=== PATIENT | female | born 1985 | race Caucasian/White ===

== ENCOUNTER 2018-01-26 05:04 | Inpatient (IN) | payer BC, SELFPAY ==
[2018-01-26] MEDS: Lactated Ringers 1,000 ML 50 ML IV (05:15)
[2018-01-26] MEDS: Betamethasone/Betamethasone 30 MG/5 ML Vial 12 MG IM (05:27)
[2018-01-26 05:32] VITALS: BMI 23.6
[2018-01-26 05:32] LABS: Hematocrit 37.9 % (37-47); Hemoglobin 13.2 g/dl (12.0-15.0); Mean Corp Hgb Conc 34.8 g/gl (32-36); Mean Corpuscular Hgb 30.6 pg (27.0-32.0); Mean Corpuscular Volume 87.7 fL (81-99); Mean Platelet Vol. 9.5 fl (6.2-12.0); Platelet Count 389 K/mm3 (150-450); RBC Distribution Width CV 11.8 % (11.6-14.6); RBC Distribution Width SD 37.3 fl (35.1-43.9); Red Blood Count 4.32 M/mm3 (4.2-5.4); White Blood Count 23.2 K/mm3 (4.4-11.0)
[2018-01-26 05:33] LABS: Scan Indicated on CBC? Y/N NO
--- NOTE | 2018-01-26 06:16 | PCM.HP.OB ---
History Date of Admission: 01/26/18 Final KANWAL: 03/04/18 Final KANWAL Source: US <20 weeks Gestational age: 34 Weeks and 5 Days History of this : 32-year-old 5 para 0222 at 34-5/7 weeks can presents complaining contractions since approximately 4 AM. No gross vaginal bleeding or leaking of fluid. has been uncomplicated to date. She has a history of 2 previous 36 week deliveries and declined progesterone therapy during her . She has a history of petit mall seizures she has not been any medications for this during the .. Allergies acetaminophen [From Vicodin] Allergy (Verified 01/26/18 05:24) Unknown hydrocodone bitartrate [From Vicodin] Allergy (Verified 01/26/18 05:24) Unknown latex Allergy (Verified 01/26/18 05:24) Hives Home Medications: Home Medications Folic Acid 1 mg PO DAILY@0800 01/26/18 Vit Calc,Iron,Folic [ Vitamins] 1 each PO DAILY 01/26/18 Smoking Status: Former smoker Alcohol: None Number of Fetus(es): 1 History Past Pregnancies: Past Pregnancies Delivery Date Name GA/Weeks Outcome Route Weight Gender Labor Length Anesthesia Delivery Location Provider FOB Expected Delivery Method: Spontaneous Vaginal Review of Systems Constitutional: Denies: Anorexia, Chills, Fever Cardiovascular: Denies: Chest Pain Respiratory: Denies: Cough Physical Exam General: Alert, Cooperative, No apparent distress Cardiovascular: Regular rate Lungs: Normal air movement Abdomen: Soft, Non-Distended, Appropriate for Gestational Age Extremities:: No edema [employer]ING [employer]GER: Normal external genitalia Estimated gestational size: Appropriate for gestational size Presentation: Cephalic Cervix Dilation (cm): 8 - arom w/ moderate clear fluid Station: 1 Effacement (%): 80 Assessment/Plan 32-year-old 5 para 2021 at 34-5/7 weeks with spontaneous labor. Estimated weight is approximately 2500-3000g clinically. She was given 1 dose of betamethasone intramuscularly in anticipation of delivery. Group B strep prophylaxis has been initiated. Patient plans labor without epidural. May have epidural if she changes her mind. Pediatrics has been notified of impending delivery. May have nitrous oxide if needed..
[2018-01-26] MEDS: Oxytocin 30 units/NS 500 ml 30 UNITS/500 ML IV.SOLN 334 UNITS IV (06:23)
--- NOTE | 2018-01-26 06:33 | PCM.OB.VAG ---
Vaginal Delivery Maternal Presentation: Active Labor Amniotic Membrane Rupture Type: Artificial Amniotic Fluid Description: Clear Final KANWAL: 03/04/18 Final KANWAL Source: US <20 weeks Gestational age: 34 Weeks and 5 Days Date of Procedure: 01/26/18 Pre-Operative Diagnosis: labor Post-Operative Diagnosis: same Surgery/ Procedure Performed: Spontaneous Vaginal Delivery Type of Anesthesia: None Description of Procedure: A vigorous male was delivered GETACHEW over an intact perineum. The remainder the infant was delivered with maternal pushing effort only in a controlled fashion. The Pitocin infusion was initiated for active management of the third stage. The cord was clamped and cut after 1 minute. The infant was attended to by the waiting nursing staff and salon professional. The placenta was delivered spontaneously and intact. The cervix and vagina were intact. Sponge and needle counts were correct. A vaginal sweep was completed by me. Presentation: GETACHEW Placental Delivery Description: Spontaneous Placenta Disposition: Sent to Pathology - at [facility] Cord Vessel Description: 3 Vessels Cord Gases drawn per routine: ABG, VBG Cord Entanglement: None Drain: - - none Estimated Blood Loss: 200 Infant A gender: Male (1 minute): 8 (5 minute): 9 Episiotomy Description: None Laceration: None Medications given after delivery: IV Pitocin Complications: None
[2018-01-26] MEDS: Oxytocin 30 units/NS 500 ml 30 UNITS/500 ML IV.SOLN 167 UNITS IV (06:53)
[2018-01-26] MEDS: 0.9% Saline Lock 10 ML Syringe IV (08:03)
[2018-01-26 10:20] VITALS: BP 101/58; PULSE 78; RESP 16; TEMP 36.8
[2018-01-26 15:10] VITALS: BP 100/56; PULSE 78; RESP 16; TEMP 36.8; O2SAT 97
[2018-01-26 20:13] VITALS: BP 111/52; PULSE 80; RESP 16; TEMP 37.2
[2018-01-27 01:33] VITALS: BP 113/49; PULSE 84; RESP 16; TEMP 37.2; O2SAT 99
[2018-01-27 05:00] VITALS: BP 99/55; PULSE 80; RESP 16; TEMP 37.3
[2018-01-27 08:11] VITALS: BP 95/47; PULSE 74; RESP 16; TEMP 36.5; O2SAT 96
--- NOTE | 2018-01-27 11:32 | PCM.PN.OB ---
Subjective: pain well controlled, average lochia. Gina. regular diet. Working on - Physical Exam General: Alert, Cooperative, No apparent distress Vital Signs Temp Pulse Resp BP Pulse Ox 97.7 F L 74 16 95/47 L 96 01/27/18 08:11 01/27/18 08:11 01/27/18 08:11 01/27/18 08:11 01/27/18 08:11 Oxygen Delivery Method Room Air Weight: 64.5 kg Body Mass Index (BMI) 23.6 Intake and Output for Last 24 Hours 01/25/18 01/26/18 01/27/18 23:59 23:59 23:59 Intake Total 334 / 334 Output Total 500 / 500 Balance -166 / -166 Medical Necessity - Tobacco Use Smoking Status: Former smoker Assessment/Plan day #1 Doing well, routine care Infant in the special care nursery due to prematurity. Is doing well.
--- NOTE | 2018-01-27 11:37 | DCINST_ITS ---
Discharge Diet: No Restrictions Discharge Activity: Return to Normal Activity, May not drive while taking narcotic pain medications., May Shower May resume sexual activity in: 4-6 weeks Additional Activity Instructions:: Nothing in the vagina for 4-6 weeks. You may return to work/school in 6 weeks. Call your doctor if your incision/area has: Continuous Slow Oozing, Sudden Increased Bleeding, Increased Pain/ Swelling, Increased Redness, Foul Smelling Discharge Additional Instructions: If you experience any of the following, contact your healthcare provider. * Bleeding that soaks a pad every hour for 2 hours * Fever 100.4 or higher * Unrelieved incision or abdominal pain * Swelling, redness, discharge or bleeding from your incision or episiotomy site * Your incision begins to separate * Problems urinating (including inability to urinate or burning while urinating) . * Visual changes * Severe headache * Flu-like symptoms * Pain or redness in one of both of your breasts * Pain, warmth, tenderness or swelling in your legs, especially the calf area * Frequent nausea and vomiting * Symptoms of depression or anxiety If you experience any of the following, call 911 or go to the nearest Emergency Room. * Chest pain * Problems breathing * Seizure activity * Partial or complete paralysis of a body part, slurred speech, weakness or drooping of the face, or a sudden inability to walk or hold your balance Allergies/Adverse Reactions: Allergies acetaminophen [From Vicodin] Allergy (Verified 01/26/18 05:24) Unknown hydrocodone bitartrate [From Vicodin] Allergy (Verified 01/26/18 05:24) Unknown latex Allergy (Verified 01/26/18 05:24) Hives Medications to take at Discharge Folic Acid 1 mg PO DAILY@0800 01/26/18 Vit Calc,Iron,Folic [ Vitamins] 1 each PO DAILY 01/26/18 Ibuprofen [Motrin] 600 mg PO Q6H PRN #60 tab 01/27/18 The following prescriptions were given: Ibuprofen [Motrin] 600 mg PO Q6H PRN #60 tab PRN Reason: Pain Please Follow Up With: Lacie Bhakta MD - [phone] When: Call to make an appointment with your doctor in 6 weeks. If you had elevated Blood Pressure or 4th degree laceration you will need to be seen in 2 weeks. Primary Care Physician: Chris Vincent DO [Primary Care Provider] - Test Results: Test results from this visit will be discussed in further detail at your follow- up appointment, if applicable.
[2018-01-27 13:38] VITALS: BP 105/48; PULSE 80; RESP 18; TEMP 36.9; O2SAT 96
[2018-01-27 20:00] VITALS: BP 105/50; PULSE 84; RESP 16; TEMP 36.6; O2SAT 97
[2018-01-28 03:00] VITALS: BP 92/43; PULSE 71; RESP 16; TEMP 36.2
[2018-01-28 08:30] VITALS: BP 98/65; PULSE 89; RESP 20; TEMP 36.9
--- NOTE | 2018-01-28 10:53 | NURSING ---
Patient has swollen breast tissue and milk ducts in her axilla. Advised patient to use heat and massage before and during pumping and ice for 10min per side after. Pumping every 3 hours around the clock.
--- NOTE | 2018-01-28 11:45 | PCM.PN.OB ---
Subjective: Patient sitting up in chair in nursery doing skin to skin with . present and supportive of patient. Patient reports some mild bilateral axillary lymph node enlargement Lt. side > Rt. side. Patient notes that she had skipped a pumping session in middle of night last night when baby wasn't interested in latching so that she could get more sleep. This morning patient having some mild pain and fullness in bilateral axilla. Denies RANGEL, dizziness, scotoma. Denies issues with urination or ambulation. Patient requests discharge now so she has freedom to visit with other children at her home - anticipate baby will remain in nursery as baby is pre-term. Objective: Nipples BL without cracks/ blisters. No erythema noted. Axilla BL lymph nodes and breast tissue engorged. Tissue soft, mobile, no erythema noted. Abdomen NT x 4 quadrants, FF midline 2FB below umbilicus +2/4 reflexes BL in LE, no edema, no calf tenderness to palpation Scant rubra lochia, perineum intact - Physical Exam General: Alert, Oriented x3, Cooperative HEENT: Atraumatic, Normocephalic Neck: Supple Lungs: Clear to auscultation, Normal air movement Cardiovascular: Regular rate, No murmurs Abdomen: Bowel Sounds Present, Soft, Non Tender Extremities: No edema, Capillary Refill Less than 3 Seconds Skin: No rashes, No breakdown Musculoskeletal: No Tenderness to Palpation of Joints or Extremities Lymphatic: - - Axillary lymph nodes/breast tissue engorged bilaterally Lt. > Rt. Neurological: Cranial nerves II-XII grossly intact Psych/Mental Status: Normal Affect, Appropriate Vital Signs Temp Pulse Resp BP Pulse Ox 98.5 F 71 20 H 92/43 L 97 01/28/18 08:30 01/28/18 03:00 01/28/18 08:30 01/28/18 03:00 01/27/18 20:00 Oxygen Delivery Method Room Air Weight: 142 lb 3.17 oz Body Mass Index (BMI) 23.6 Intake and Output for Last 24 Hours 01/26/18 01/27/18 01/28/18 23:59 23:59 23:59 Intake Total 334 / 334 Output Total 500 / 500 Balance -166 / -166 Medical Necessity - Tobacco Use Smoking Status: Former smoker Assessment/Plan 32 y/o, s/p @ 34+ weeks, PPD #2, Normal PP course P: 1) Anticipatory discharge teaching done 2) Encourage use of massage and warm heat/shower to axilla to increase milk flow and engorgement; warming precautions for clogged ducts and mastitis reviewed 3) RTC to [facility] [place] by 6 weeks PP. Mirela BRICE
== END 2018-01-28 14:00 | disposition home or self-care (01) | DRG 775 ==
PROVIDERS: Admitting Provider Obstetrics & Gynecology; Family Provider Student in an Organized Health Care Education/Training Program; PCP Student in an Organized Health Care Education/Training Program; Visit Provider Obstetrics & Gynecology
DX: O60.14X0 Preterm labor third trimester with preterm delivery third trimester, not applicable or unspecified (principal); O99.354 Diseases of the nervous system complicating childbirth; G40.802 Other epilepsy, not intractable, without status epilepticus; Z3A.34 34 weeks gestation of pregnancy; Z37.0 Single live birth; Z87.891 Personal history of nicotine dependence; O99.89 Other specified diseases and conditions complicating pregnancy, childbirth and the puerperium; R59.0 Localized enlarged lymph nodes
CPT/HCPCS: 59025; 59050; 85027; 85461; 86850; 86900; 86901; 90384; 99218; J7120; A4216; G0378; J0702; J2790

== ENCOUNTER 2018-07-30 06:01 | Emergency (ER) | payer BC, SELFPAY ==
[2018-07-30 06:02] VITALS: BP 133/84; PULSE 75; RESP 18; TEMP 36.3; O2SAT 96; BMI 19.8
[2018-07-30 06:05] VITALS: BP 133/84; PULSE 75; RESP 18; TEMP 36.3; O2SAT 96
--- NOTE | 2018-07-30 06:15 | ED.VISSUMM ---
- ER Visit Summary Date of Service: 07/30/18 Chief Complaint: [dental pain] History of Present Illness: The patient is a 32 F [presents with right upper and lower dental pain that began several days ago. She has had this pain on and off for several months. She has an upcoming oral surgery appointment to have several of the teeth pulled but not until September. No recent antibiotic use. She has no other complaints. She has been taking Tylenol at home without relief. She denies chance of . She is not breast-feeding.] Physical Examination: [General: The patient appears well and in no apparent distress. Patient is resting comfortably on cart. Skin: Warm, dry, no pallor noted. No rash. Head: Normocephalic, atraumatic Neck: Supple, nontender. No lymphadenopathy, no meningismus. ENT: Moist mucus membranes, pharynx within normal limits. Tenderness to percussion right upper and lower molar regions. No focal abscess. No sublingual edema. Airway patent. Cardiovascular: Regular Rate and Rhythm, no gallops or rubs Respiratory: Patient is in no distress, no accessory muscle use, lungs are clear to auscultation, no wheezing, rales or rhonchi Musculoskeletal: normal ROM, no deformity, no tenderness, no swelling. 2+ radial and DP pulses symmetric. GI: No tenderness to palpation, no masses appreciated. No rebound, guarding, or rigidity noted. Neurological: A&O, normal strength and sensation. Psychiatric: Cooperative] Test Results: [] Emergency Department Course and Treatment: [Patient will be treated with a course of Pen-Vee K and a half for a short prescription of tramadol for breakthrough pain. She will follow closely with her primary provider and dentist. She was instructed to return with any new or worsening symptoms. Patient understands and is agreeable with this plan of care. Patient was discharged home in stable condition.] Treatment Plan: [See above] Disposition: [Discharged home, stable condition] Impression: [Odontalgia, dental caries] This note was generated with [employer] dictation software. It may contain incorrect words, spelling, and punctuation that were not noted in review of the chart prior to signing ED Disposition - Plan for ED Patient: Disposition: Home or Assisted Living Chief Complaint: Dental Instructions: ED Tooth Pain Prescriptions: traMADol [Ultram] 50 mg PO Q6H PRN PRN 3 Days #10 tab PRN Reason: Pain Penicillin V Potassium 500 mg PO 4X/DAY #20 tab Referrals: Chris Vincent DO [Primary Care Provider] -
--- NOTE | 2018-07-30 06:18 | ED.DCSUM_ITS ---
- ER Visit Summary Date of Service: 07/30/18 Chief Complaint: [dental pain] History of Present Illness: The patient is a 32 F [presents with right upper and lower dental pain that began several days ago. She has had this pain on and off for several months. She has an upcoming oral surgery appointment to have several of the teeth pulled but not until September. No recent antibiotic use. She has no other complaints. She has been taking Tylenol at home without relief. She denies chance of . She is not breast-feeding.] Physical Examination: [General: The patient appears well and in no apparent distress. Patient is resting comfortably on cart. Skin: Warm, dry, no pallor noted. No rash. Head: Normocephalic, atraumatic Neck: Supple, nontender. No lymphadenopathy, no meningismus. ENT: Moist mucus membranes, pharynx within normal limits. Tenderness to percussion right upper and lower molar regions. No focal abscess. No sublingual edema. Airway patent. Cardiovascular: Regular Rate and Rhythm, no gallops or rubs Respiratory: Patient is in no distress, no accessory muscle use, lungs are clear to auscultation, no wheezing, rales or rhonchi Musculoskeletal: normal ROM, no deformity, no tenderness, no swelling. 2+ radial and DP pulses symmetric. GI: No tenderness to palpation, no masses appreciated. No rebound, guarding, or rigidity noted. Neurological: A&O, normal strength and sensation. Psychiatric: Cooperative] Test Results: [] Emergency Department Course and Treatment: [Patient will be treated with a course of Pen-Vee K and a half for a short prescription of tramadol for breakthrough pain. She will follow closely with her primary provider and dentist. She was instructed to return with any new or worsening symptoms. Patient understands and is agreeable with this plan of care. Patient was discharged home in stable condition.] Treatment Plan: [See above] Disposition: [Discharged home, stable condition] Impression: [Odontalgia, dental caries] This note was generated with [employer] dictation software. It may contain incorrect words, spelling, and punctuation that were not noted in review of the chart prio r to signing ED Disposition - Plan for ED Patient: Disposition: Home or Assisted Living Chief Complaint: Dental Instructions: ED Tooth Pain Prescriptions: traMADol [Ultram] 50 mg PO Q6H PRN PRN 3 Days #10 tab PRN Reason: Pain Penicillin V Potassium 500 mg PO 4X/DAY #20 tab Referrals: Chris Vincent DO [Primary Care Provider] -
[2018-07-30] MEDS: traMADol 50 MG Tablet PO (06:25)
[2018-07-30] MEDS: Penicillin Vk 250 MG Tablet 500 MG PO (06:25)
[2018-07-30 06:27] VITALS: BP 127/78; PULSE 74; O2SAT 96
== END 2018-07-30 06:28 | disposition home or self-care (01) ==
PROVIDERS: Emergency Provider Emergency Medicine; Family Provider Student in an Organized Health Care Education/Training Program; PCP Student in an Organized Health Care Education/Training Program
DX: K02.9 Dental caries, unspecified (principal); K08.89 Other specified disorders of teeth and supporting structures; Z72.0 Tobacco use
CPT/HCPCS: 99283

== ENCOUNTER 2019-05-19 12:58 | Emergency (ER) | payer BC, SELFPAY ==
[2019-05-19 12:59] VITALS: BP 131/88; PULSE 91; RESP 17; TEMP 37.6; O2SAT 99; BMI 19.7
--- NOTE | 2019-05-19 13:23 | EKG12_ITS ---
Test Reason : Blood Pressure : / mmHG Vent. Rate : 085 BPM Atrial Rate : 085 BPM P-R Int : 126 ms QRS Dur : 082 ms QT Int : 378 ms P-R-T Axes : 073 057 028 degrees QTc Int : 449 ms Normal sinus rhythm Normal ECG Confirmed by SID STEINER, AMINTA ([id number]), scientific editor ANNIE TRAN ([id number]) on 05/21/2019 2:04:16 PM Referred By: KENYATTA Confirmed By:AMINTA LAU MD
--- NOTE | 2019-05-19 13:24 | ED.VIS.GEN ---
History of Present Illness Chief Complaint: Cough Detail of Chief Complaint: Cough with right-sided chest pain Informant: Patient Onset: Weeks Current Severity: Mild Maximum Severity: Moderate Narrative: Patient complains of cough for the past couple of weeks. At the onset of her cough she had sore throat and right ear pain, but that resolved a week and a half ago. 2 days ago she developed right sided chest pain and pain around her right shoulder blade with cough. She states with a deep breath she has some mild pain there. She is had some chills but no fever. She went to urgent care and had a chest x-ray that was unremarkable. Patient was sent here to rule out PE. Patient denies any PE risk factors. - Past Medical History (1) Back pain Status: Chronic (2) Depression Status: Chronic Past Medical History - Allergies and Home Meds Allergies/Adverse Reactions: Allergies acetaminophen [From Vicodin] Allergy (Verified 05/19/19 12:59) Upset Stomach hydrocodone bitartrate [From Vicodin] Allergy (Verified 05/19/19 12:59) Upset Stomach latex Allergy (Verified 05/19/19 12:59) Hives Primary Care Physician: Chris Vincent DO [Primary Care Provider] - Prior records reviewed: Yes Lives: With Family Smoking Status: Current every day smoker Review of Systems General: Reports: Chills. Denies: Fever Eyes: Denies: Visual changes - bilaterally ENT: Reports: Right ear pain - Resolved Cardiovascular: Reports: Chest pain Respiratory: Reports: Dyspnea, Cough. Denies: Sputum Gastrointestinal: Denies: Abdominal pain, Nausea, Vomiting, Diarrhea Genitourinary: Denies: Dysuria Skin: Denies: Rash Neurological: Denies: Headache Allergy: Denies: Uticaria Physical Exam Vital Signs/Narrative: Vital Signs Temp Pulse Resp BP Pulse Ox 05/19/19 12:59 99.6 F H 91 17 131/88 H 99 Inital Vital Signs reviewed: Yes General: Well nourished, Well developed, - - Speech with hoarse voice. Head: Normocephalic ENT: Moist mucous membranes, TM's clear, - - Posterior pharyngeal drainage. Neck: Supple, - - Mild bilateral anterior cervical lymphadenopathy. Cardiovascular: Regular rate, Regular rhythm Respiratory: No distress, CTA bilaterally, Chest tenderness - Right upper chest wall tenderness. No crepitus. Abdomen: Soft, Nontender Extremities: Nontender, No edema Skin: Normal color, No rash Neurological: Alert, Oriented x3 Psychological: Normal affect Diagnostic/Tx/Re-eval Laboratory Results 05/19/19 05/19/19 05/19/19 13:05 13:05 13:05 WBC 15.9 H RBC 4.51 Hgb 13.7 Hct 40.0 MCV 88.7 MCH 30.4 MCHC 34.3 RDW Std Deviation 39.8 RDW Coeff of Jennifer 12.2 Plt Count 335 MPV 8.8 Immature Gran % (Auto) 0.500 Neut % (Auto) 65.6 Lymph % (Auto) 29.4 Sargent % (Auto) 3.8 Eos % (Auto) 0.4 Baso % (Auto) 0.3 Absolute Neuts (auto) 10.4 H Absolute Lymphs (auto) 4.67 H Nucleated RBC % 0 Reactive Lymphocytes 1+ D-Dimer Quant (PE/DVT) < 0.27 L Sodium 143 Potassium 3.7 Chloride 111 H Carbon Dioxide 26.0 Anion Gap 6 BUN 8 Creatinine 0.70 Estim Creat Clear Calc 94.13 Est GFR (MDRD) Af Amer 125 Est GFR (MDRD) Non-Af 103 BUN/Creatinine Ratio 11.5 Glucose 90 Calcium 8.5 Troponin I < 0.015 - EKG Initial EKG Interpretation: Sinus Rhythm - Sinus at 85 with no acute ischemia. - Medical Decision Making Patient presents from an urgent care with cough, shortness of breath, right chest pain. Chest x-ray there was unremarkable. Patient was given a dose of Toradol here for pain. Lab work is unremarkable with a negative d-dimer. EKG is unremarkable. Patient does have an elevated white count and has been ill for couple weeks. She will be treated the course of doxycycline, first dose given here. ED Disposition - Plan for ED Patient: Disposition: Home or Assisted Living Diagnosis: Bronchitis Instructions: BRONCHITIS, Antiobiotic Treatment (Adult) Prescriptions: Doxycycline 100 mg PO BID #20 capsule Referrals: Chris Vincent DO [Primary Care Provider] - 1-2 Weeks
[2019-05-19] MEDS: 0.9% Normal Saline 1,000 ML 150 ML IV (13:30)
[2019-05-19] MEDS: Ketorolac 30 MG/ML Syringe IV (13:53)
[2019-05-19 14:06] LABS: Absolute Lymphocyte Count 4.67 X10^3/uL (0.83-4.51); Absolute Neutrophil Count 10.4 X10^3/uL (2.0-7.7); Basophil# 0.05 X10^3/uL; Basophil% 0.3 % (0-1); Eosinophil# 0.07 X10^3/uL; Eosinophils% 0.4 % (0-5); Hemoglobin 13.7 g/dL (12.0-15.0); Lymphocyte # 4.67 X10^3/ul (4.0); Lymphocyte % 29.4 % (19-41); Mean Corp Hgb Conc 34.3 g/dL (32-36); Mean Corpuscular Hgb 30.4 pg (27.0-32.0); Mean Corpuscular Volume 88.7 fL (81-99); Mean Platelet Vol. 8.8 fl (6.2-12.0); Monocyte# 0.61 X10^3/uL; Monocyte% 3.8 % (0-10); NRBC Flagged by Analyzer 0 % (0-5); Neutrophil # 10.42 X10^3/uL (2.7-7.7); Neutrophil % 65.6 % (47-70); POSITIVE MORPHOLOGY YES; Platelet Count 335 K/mm3 (150-450); RBC Distribution Width CV 12.2 % (11.6-14.6); RBC Distribution Width SD 39.8 fl (35.1-43.9); Red Blood Count 4.51 M/mm3 (4.2-5.4); White Blood Count 15.9 K/mm3 (4.4-11.0)
[2019-05-19 14:07] LABS: Differential Indicated SCAN CRITERIA MET
[2019-05-19 14:20] LABS: D-Dimer Quantitative (DVT/PE) < 0.27 FEU/ug/m (0.27-0.49)
[2019-05-19 14:25] LABS: Anion Gap 6 (5-15); BUN 8 mg/dL (7-18); BUN/Creat Ratio 11.5 RATIO (10-20); Calcium,Total 8.5 mg/dL (8.5-10.1); Chloride 111 mmol/L (98-107); EST Glomerular Filtration Rate 103 mL/min (>60); Est Glom Filt Rate - Afr Amer 125 mL/min (>60); Estimated Creatinine Clearance 94.13 ml/min; Glucose 90 mg/dL (74-106); Potassium 3.7 mmol/L (3.5-5.1); Sodium Level 143 mmol/L (136-145)
[2019-05-19 14:28] LABS: Reactive Lymphocyte 1+
[2019-05-19] MEDS: Doxycycline 100 MG CAPSULE PO (15:25)
[2019-05-19 15:27] VITALS: BP 98/66; PULSE 71; RESP 18; O2SAT 98
== END 2019-05-19 15:31 | disposition home or self-care (01) ==
PROVIDERS: Emergency Provider Emergency Medicine; Family Provider Student in an Organized Health Care Education/Training Program; PCP Student in an Organized Health Care Education/Training Program
DX: J40 Bronchitis, not specified as acute or chronic (principal)
CPT/HCPCS: 80048; 84484; 85025; 85379; 93005; 96361; 96374; 99285; J7030; A4216

== ENCOUNTER 2020-03-17 16:08 | Outpatient (CLI) | payer BC, SELFPAY ==
[2020-03-17] VITALS (26 sets, daily range): BP systolic 99–114; BP diastolic 51–68; PULSE 75–92; RESP 16; TEMP 36.9–37.1; O2SAT 96–99; BMI 22.1
[2020-03-17] MEDS: Betamethasone/Betamethasone 30 MG/5 ML Vial 12 MG IM (16:45)
[2020-03-17] MEDS: Lactated Ringers 1,000 ML 50 ML IV (17:00)
[2020-03-17 17:01] LABS: Absolute Lymphocyte Count 4.15 X10^3/uL (0.83-4.51); Absolute Neutrophil Count 14.3 X10^3/uL (2.0-7.7); Basophil# 0.04 X10^3/uL; Basophil% 0.2 % (0-1); Eosinophil# 0.06 X10^3/uL; Eosinophils% 0.3 % (0-5); Hematocrit 30.4 % (37-47); Hemoglobin 10.6 g/dL (12.0-15.0); Lymphocyte # 4.15 X10^3/ul (4.0); Lymphocyte % 21.1 % (19-41); Mean Corp Hgb Conc 34.9 g/dL (32-36); Mean Corpuscular Hgb 31.5 pg (27.0-32.0); Mean Corpuscular Volume 90.2 fL (81-99); Mean Platelet Vol. 9.7 fl (6.2-12.0); Monocyte# 0.94 X10^3/uL; Monocyte% 4.8 % (0-10); NRBC Flagged by Analyzer 0 % (0-5); Neutrophil # 14.32 X10^3/uL (2.7-7.7); Neutrophil % 72.6 % (47-70); Platelet Count 372 K/mm3 (150-450); RBC Distribution Width SD 38.8 fl (35.1-43.9); Red Blood Count 3.37 M/mm3 (4.2-5.4); White Blood Count 19.7 K/mm3 (4.4-11.0)
[2020-03-17] MEDS: Magnesium Sulfate 4gm/100mL 4 GM/100 ML IV.SOLN. IV (17:10)
[2020-03-17 17:16] LABS: Fetal Fibronectin Negative
--- NOTE | 2020-03-17 17:25 | PCM.HP.OB ---
- Problem List (1) 28 weeks gestation of Status: Acute (2) History of delivery Status: Acute (3) contractions Status: Acute (4) Rh negative state in antepartum period Status: Acute (5) History of bipolar disorder Status: Acute (6) History of precipitous delivery Status: Acute (7) History of seizure disorder Status: Acute History Date of Admission: 03/17/20 Final KANAWL: 06/03/20 Final KANWAL Source: US <20 weeks Gestational age: 28 Weeks and 6 Days History of this : This is a 34 year-old, G 6, P 0323, at 28 weeks gestational age who this with painful contractions. Denies leaking of fluid or vaginal bleeding. Good movement. In the office her cervix was closed. She was sent over to labor and delivery for further monitoring. Allergies acetaminophen [From Vicodin] Allergy (Verified 05/19/19 12:59) Upset Stomach hydrocodone bitartrate [From Vicodin] Allergy (Verified 05/19/19 12:59) Upset Stomach latex Allergy (Verified 05/19/19 12:59) Hives Home Medications: Home Medications Penicillin V Potassium 500 mg PO 4X/DAY #20 tab 07/30/18 Doxycycline 100 mg PO BID #20 cap 05/19/19 Smoking Status: Current some day smoker Number of Fetus(es): 1 NST - FHR Rate Baby A Baseline: 150 Variability:: Moderate Accelerations:: 10 x 10 Decelerations:: None NST Reactive:: Appropriate for gestational age Uterine Activity:: Irregular ctx's History Past Pregnancies: Past Pregnancies Delivery Date Name GA/ Weeks Outcome Route Wt Sex Labor Length Anesthesia Delivery Location Provider FOB Labs: See [facility] record Expected Infant Delivery Method: Spontaneous Vaginal Review of Systems Gynecological: Reports: - - +ctx. No vb, lof Physical Exam Vitals: Vital Signs Temp Pulse BP Pulse Ox 98.7 F 84 105/59 L 98 03/17/20 16:19 03/17/20 17:24 03/17/20 17:24 03/17/20 17:09 General: Alert, No apparent distress HEENT: Atraumatic Abdomen: Soft, Non Tender, Gravid Extremities:: No edema Neurological: Neuro grossly intact [facility]: Normal external genitalia Estimated gestational size: Appropriate for gestational size Presentation: Cephalic Cervix Dilation (cm): 1 Effacement (%): 40 Assessment/Plan All Active Problems 28 weeks gestation of (Acute) History of delivery (Acute) contractions (Acute) Rh negative state in antepartum period (Acute) History of bipolar disorder (Acute) History of precipitous delivery (Acute) History of seizure disorder (Acute) This is a 34 year-old, G 6, P 3023, at 28 weeks gestational age to the office with painful regular contractions. Her cervix has changed from close to 1 cm dilated. H/o 3 deliveries. On IM progesterone in this . - FFN collected and sent in our office - BMZ x 1 given - Collect GBS and then start PCN for GBS unknown - Mag 6 g bolus and 2 g/hr for neuroprotection - TAUS confirms vertex presentation - Last growth US in our office was at 23w6d, EFW 598g at that time - Rh negative: Rhogam given 03/10/2020 - Discussed transfer to tertiary care center given gestational age. Discussed plan of care with patient and her partner, and questions answered. Called Dr. Yoan Moreno who accepts the transfer
[2020-03-17] MEDS: Magnesium Sulfate 4gm/100mL 2 GM/50 ML IV.SOLN. IV (17:30)
[2020-03-17] MEDS: Magnesium Sulfate 20 GM/500 ML BAG IV (17:55)
[2020-03-17] MEDS: Ondansetron 4 MG/2 ML Vial IV (18:27)
[2020-03-17 18:42] LABS: Group B Strep DNA By PCR Negative (Negative); Internal Control PASS; Probe Check PASS; Specimen Processing Control PASS
== END 2020-03-17 18:45 | disposition home or self-care (01) ==
LOC: WPOUT 16:15 → WP 16:16
PROVIDERS: PCP Student in an Organized Health Care Education/Training Program; Visit Provider Obstetrics & Gynecology
DX: O26.93 Pregnancy related conditions, unspecified, third trimester (principal); Z3A.28 28 weeks gestation of pregnancy
CPT/HCPCS: 96374; 36415; 59050; 76815; 82731; 85025; 86850; 86870; 86900; 86901; 87077; 87081; 87186; 87653; 96372; 99218; J7120; G0378; J0702; J2405

== ENCOUNTER 2020-04-12 14:50 | Outpatient (CLI) | payer BC, SELFPAY ==
[2020-03-17 16:22] VITALS: BMI 22.1
[2020-04-12 15:22] VITALS: BP 104/58; PULSE 91
[2020-04-12 15:23] VITALS: TEMP 37.2
[2020-04-12 15:35] VITALS: BMI 22.8
[2020-04-12] MEDS: Acetaminophen 500 MG Tablet 1000 MG PO (18:03)
[2020-04-12 18:06] VITALS: BP 98/55; PULSE 85; TEMP 37.2
--- NOTE | 2020-04-12 18:07 | OB.TRI.NOTE ---
- Problem List (1) 32 weeks gestation of Status: Acute (2) Back pain Status: Chronic (3) History of delivery Status: Acute History of Present Illness Date of Service: 04/12/20 Was patient seen by the physician?: Yes Reason For Visit: RULE OUT LABOR Date of Service: 04/12/20 Final KANWAL Source: US <20 weeks Gestational age: 32.4 History of Present Illness: Patient is a 34 year old at 32.4 weeks gestation sent from office for observation and monitoring for r/o labor. Patient reports having cramping and back pain since last weekend. Positive movement. Denies any loss of fluid but does have light pink tinged discharge when wipes. Patient has history of deliveries. Patient has received Celestone IM x2 and is currently receiving progesterone injections. Allergies acetaminophen [From Vicodin] Allergy (Verified 04/12/20 15:42) Upset Stomach hydrocodone bitartrate [From Vicodin] Allergy (Verified 04/12/20 15:42) Upset Stomach latex Allergy (Verified 04/12/20 15:42) Hives Review of Systems Constitutional: Denies: Anorexia, Chills Cardiovascular: Denies: Chest Pain, Edema, Heaviness Respiratory: Denies: Cough, Shortness of Breath Gastrointestinal: Denies: Abdominal Pain Genitourinary: Denies: Dysuria Gynecological: Reports: Vaginal discharge Neurological: Denies: Headaches, Numbness, Tingling Physical Exam Vitals: Vital Signs Temp Pulse BP 99.0 F 91 104/58 L 04/12/20 15:23 04/12/20 15:22 04/12/20 15:22 General: Alert, Oriented x3, Cooperative Cardiovascular: Regular rate Lungs: Normal air movement Abdomen: Soft, Non Tender, Gravid Neurological: Cranial nerves II-XII grossly intact Estimated gestational size: Appropriate for gestational size Presentation: Cephalic Cervix Dilation (cm): 2 Station: -2 Effacement (%): 60 NST - FHR Rate Baby A Baseline: 140 Variability:: Moderate Accelerations:: 15 x 15 Decelerations:: None NST Reactive:: Appropriate for gestational age Uterine Activity:: Irritability- occasional contractions Impression/Plan at 32.4 weeks gestation for rule out labor NST reactive, appropriate for gestational age Tylenol 1000 mg PO x1 now CE- 2/60/-2 ( unchanged) Discharge home with labor precautions and instructions for follow up in office Dr. Bhakta notified and aware of plan
== END 2020-04-12 18:40 | disposition home or self-care (01) ==
LOC: WPOUT 14:54 → WP 14:54
PROVIDERS: PCP Student in an Organized Health Care Education/Training Program; Referring Provider Advanced Practice Midwife; Visit Provider Advanced Practice Midwife
DX: O47.03 False labor before 37 completed weeks of gestation, third trimester (principal); Z3A.32 32 weeks gestation of pregnancy
CPT/HCPCS: 59025; 59050; 99218; G0378

== ENCOUNTER 2020-04-20 10:40 | Outpatient (CLI) | payer BC, SELFPAY ==
[2020-04-20 11:01] VITALS: BP 101/55
[2020-04-20 11:02] VITALS: PULSE 102; O2SAT 98
[2020-04-20 11:24] VITALS: BMI 23.0
[2020-04-20 12:42] LABS: Hematocrit 35.7 % (37-47); Mean Corp Hgb Conc 33.6 g/dL (32-36); Mean Corpuscular Hgb 31.3 pg (27.0-32.0); Mean Platelet Vol. 9.3 fl (6.2-12.0); POSITIVE COUNT YES; Platelet Count 387 K/mm3 (150-450); RBC Distribution Width CV 12.9 % (11.6-14.6); RBC Distribution Width SD 44.1 fl (35.1-43.9); Red Blood Count 3.84 M/mm3 (4.2-5.4)
[2020-04-20 12:46] LABS: Scan Indicated on CBC? Y/N YES- FLAGS NOTED
[2020-04-20 13:21] LABS: Hematocrit 34.5 % (37-47); Hemoglobin 11.6 g/dL (12.0-15.0); Mean Corp Hgb Conc 33.6 g/dL (32-36); Mean Corpuscular Volume 92.2 fL (81-99); Mean Platelet Vol. 9.2 fl (6.2-12.0); POSITIVE COUNT YES; Platelet Count 366 K/mm3 (150-450); RBC Distribution Width SD 43.9 fl (35.1-43.9); Red Blood Count 3.74 M/mm3 (4.2-5.4)
[2020-04-20 13:22] LABS: POSITIVE DIFFERENTIAL YES; Scan Indicated on CBC? Y/N YES- FLAGS NOTED; White Blood Count 32.7 K/mm3 (4.4-11.0)
[2020-04-20] MEDS: Betamethasone/Betamethasone 30 MG/5 ML Vial 12 MG IM (13:24)
[2020-04-20 13:41] LABS: Differential Comment SCANNED
[2020-04-21 15:48] LABS: Pathologist Review Reviewed
--- NOTE | 2020-04-25 15:31 | OB.TRI.NOTE ---
History of Present Illness Was patient seen by the physician?: Yes Reason For Visit: R/O LABOR Date of Service: 04/20/20 Final KANWAL: 06/03/20 Final KANWAL Source: US <20 weeks Gestational age: 33 Weeks and 5 Days Allergies acetaminophen [From Vicodin] Allergy (Verified 04/22/20 12:15) Upset Stomach hydrocodone bitartrate [From Vicodin] Allergy (Verified 04/22/20 12:15) Upset Stomach latex Allergy (Verified 04/22/20 12:15) Hives Laboratory Studies: Laboratory Tests 04/20/20 04/20/20 Range/Units 13:12 12:31 WBC 32.7 H* 32.0 H* (4.4-11.0) K/mm3 RBC 3.74 L 3.84 L (4.2-5.4) M/mm3 Hgb 11.6 L 12.0 (12.0-15.0) g/dL Hct 34.5 L 35.7 L (37-47) % MCV 92.2 93.0 (81-99) fL MCH 31.0 31.3 (27.0-32.0) pg MCHC 33.6 33.6 (32-36) g/dL RDW Std Deviation 43.9 44.1 H (35.1-43.9) fl RDW Coeff of Jennifer 13.0 12.9 (11.6-14.6) % Plt Count 366 387 (150-450) K/mm3 MPV 9.2 9.3 (6.2-12.0) fl Differential Comment SCANNED COMMENT Diff Path Review Reviewed Physical Exam Vitals: Vital Signs Pulse BP Pulse Ox 102 H 101/55 L 98 04/20/20 11:02 04/20/20 11:01 04/20/20 11:02 NST - FHR Rate Baby A Baseline: 140 Variability:: Moderate Accelerations:: 15 x 15 Decelerations:: Variable NST Reactive:: Yes Uterine Activity:: Irregular Impression/Plan Reactive NST for threatened PTL
== END 2020-04-20 13:50 | disposition home or self-care (01) ==
LOC: WPOUT 10:56 → WP 11:19
PROVIDERS: PCP Student in an Organized Health Care Education/Training Program; Visit Provider Obstetrics & Gynecology
DX: O47.03 False labor before 37 completed weeks of gestation, third trimester (principal); Z3A.33 33 weeks gestation of pregnancy
CPT/HCPCS: 59050; 85027; 99218; G0378; J0702

== ENCOUNTER 2020-04-22 11:03 | Inpatient (IN) | payer BC, SELFPAY ==
[2020-04-22] VITALS (16 sets, daily range): BP systolic 90–118; BP diastolic 46–73; PULSE 81–94; RESP 18; TEMP 36.7–37.3; O2SAT 97–99; BMI 23.4
[2020-04-22] MEDS: Oxytocin 30 units/NS 500 ml 30 UNITS/500 ML IV.SOLN 334 UNITS IV (11:24)
--- NOTE | 2020-04-22 11:28 | OP.PCM_ITS ---
Problem List (1) 34 weeks gestation of Status: Acute (2) History of precipitous delivery Status: Acute Report of Operation Date of Procedure: 04/22/20 Vaginal Delivery Maternal Presentation: Active Labor Patient is a 34 year old at 34.0 weeks gestation brought in by [employer]. She began having contractions at home around 1000. called squad because patient was feeling like she needed to push. P.P.R.O.M while in squad van at 1050 for clear fluid. Patient was crowing upon arrival to unit. Patient has history of deliveries. She has received Celestone 12 mg IM x 2 doses as well as weekly Progesterone injections. Amniotic Membrane Rupture Type: Spontaneous at home Rupture of Membrane time: 1050 Amniotic Fluid Description: Clear Final KANWAL: 06/03/20 Gestational age: 34 Weeks and 0 Days [facility] doctor who attended delivery (if requested by OB): Luis Cabello Date of Procedure: 04/22/20 Pre-Operative Diagnosis: PPROM, Spontaneous, Active labor Post-Operative Diagnosis: Precipitous delivery, live female infant Surgery/ Procedure Performed: Spontaneous Vaginal Delivery - Precipitous Type of Anesthesia: None Description of Procedure: Patient is a 34 year old at 34.0 weeks gestation brought in by [employer]. P.P.R.O.M while in squad van at 1050 for clear fluid. Patient was crowing upon arrival to unit. Delivered quickly in vertex position without incident. Cord clamped and cut. Infant to warmer and public health dietitian present. Placenta delivered spontaneously and intact 1 minute later. Fundus Firm at U. Vaginal sweep completed by me. Perineum and vagina intact. All labs, needles and instruments accounted for. currently skin to skin with patient and bonding well. Apgars 9/9 EBL- 200cc. Precipitous Delivery. Dr. Dutta updated Presentation: Vertex Placental Delivery Description: Spontaneous Placenta Disposition: [facility] Cord Vessel Description: 3 Vessels Cord Entanglement: None A gender: Female (1 minute): 9 (5 minute): 9 Episiotomy Description: None Laceration: None Medications given after delivery: IV Pitocin Complications: None
--- NOTE | 2020-04-22 12:00 | PCM.HP.OB ---
- Problem List (1) 34 weeks gestation of Status: Acute (2) History of precipitous delivery Status: Acute History Date of Admission: 03/17/20 Final KANWAL: 06/03/20 Final KANWAL Source: US <20 weeks Gestational age: 34 Weeks and 0 Days History of this : This is a 34 year-old, G [6], P [0323], at 34.0 weeks gestational age that began having contractions at home this morning at 1000. called squad due to history of deliveries and patient feeling like she needed to push. P.P.R.O.M while in squad at 1050 and was upon arrival to unit. This she has received Celestone 12 mg X 2 as well as Progesterone injections weekly. Allergies acetaminophen [From Vicodin] Allergy (Verified 04/20/20 11:25) Upset Stomach hydrocodone bitartrate [From Vicodin] Allergy (Verified 04/20/20 11:25) Upset Stomach latex Allergy (Verified 04/20/20 11:25) Hives Home Medications: Home Medications Ferrous Sulfate 325 mg PO DAILY 04/12/20 Vits [Prenatabs FA] 1 tab PO DAILY 04/12/20 Progesterone 50 mg IM 04/20/20 Smoking Status: Current some day smoker Number of Fetus(es): 1 History Past Pregnancies: Past Pregnancies Delivery Date Name GA/ Weeks Outcome Route Wt Infant Sex Labor Length Anesthesia Delivery Location Provider FOB Labs: A- negative Rubella - immune HB- neg HC- neg RPR- NR HIV- NR GC/CH- negative GBS positive Expected Infant Delivery Method: Spontaneous Vaginal Review of Systems Constitutional: Denies: Chills, Fever Cardiovascular: Denies: Chest Pain, Light Headedness Respiratory: Denies: Cough, Shortness of Breath Gastrointestinal: Reports: Abdominal Pain Neurological: Denies: Headaches Physical Exam Vitals: Vital Signs Pulse BP Pulse Ox 88 118/56 L 99 04/22/20 11:58 04/22/20 11:44 04/22/20 11:58 General: Alert, Oriented x3, Cooperative Cardiovascular: Regular rate Lungs: Normal air movement Neurological: Cranial nerves II-XII grossly intact Assessment/Plan All Active Problems 28 weeks gestation of (Acute) History of delivery (Acute) contractions (Acute) Rh negative state in antepartum period (Acute) History of bipolar disorder (Acute) History of precipitous delivery (Acute) History of seizure disorder (Acute) 32 weeks gestation of (Acute) 34 weeks gestation of (Acute) This is a 34 year-old, G [6], P [0323], at 34.0 weeks gestational age that precipitously delivered upon arrival to unit via squad. Admit to labor and delivery Pitocin IV per protocol Standard admission orders IV fluids per protocol Dr. Dutta notified and is collaborating physician
[2020-04-22 12:46] LABS: Absolute Lymphocyte Count 3.75 X10^3/uL (0.83-4.51); Absolute Neutrophil Count 35.2 X10^3/uL (2.0-7.7); Basophil# 0.14 X10^3/uL; Basophil% 0.3 % (0-1); Hematocrit 32.2 % (37-47); Hemoglobin 10.7 g/dL (12.0-15.0); Lymphocyte # 3.75 X10^3/ul (4.0); Lymphocyte % 8.7 % (19-41); Mean Corp Hgb Conc 33.2 g/dL (32-36); Mean Corpuscular Hgb 30.9 pg (27.0-32.0); Mean Corpuscular Volume 93.1 fL (81-99); Mean Platelet Vol. 9.4 fl (6.2-12.0); Monocyte# 2.04 X10^3/uL; Monocyte% 4.7 % (0-10); NRBC Flagged by Analyzer 0 % (0-5); Neutrophil # 35.21 X10^3/uL (2.7-7.7); Neutrophil % 81.5 % (47-70); POSITIVE COUNT YES; POSITIVE DIFFERENTIAL YES; Platelet Count 322 K/mm3 (150-450); RBC Distribution Width SD 43.9 fl (35.1-43.9); Red Blood Count 3.46 M/mm3 (4.2-5.4)
[2020-04-22 12:47] LABS: White Blood Count 43.2 K/mm3 (4.4-11.0)
[2020-04-22 12:48] LABS: Differential Indicated SCAN CRITERIA MET
[2020-04-22 13:11] LABS: Hematocrit 31.6 % (37-47); Hemoglobin 10.8 g/dL (12.0-15.0); Mean Corp Hgb Conc 34.2 g/dL (32-36); Mean Corpuscular Hgb 31.9 pg (27.0-32.0); Mean Corpuscular Volume 93.2 fL (81-99); Mean Platelet Vol. 9.5 fl (6.2-12.0); POSITIVE COUNT YES; Platelet Count 332 K/mm3 (150-450); RBC Distribution Width SD 44.1 fl (35.1-43.9); Red Blood Count 3.39 M/mm3 (4.2-5.4)
[2020-04-22 13:16] LABS: Scan Indicated on CBC? Y/N YES- FLAGS NOTED; White Blood Count 45.2 K/mm3 (4.4-11.0)
[2020-04-22] MEDS: Ibuprofen 600 MG Tablet PO ×2 (13:25→21:01)
[2020-04-22 13:39] LABS: Differential Comment SCANNED; Hypochromasia RARE; Platelet Estimate ADEQUATE (ADEQ)
[2020-04-22 13:47] LABS: Differential Comment SCANNED
[2020-04-23 01:13] VITALS: BP 92/46; PULSE 87; RESP 18; TEMP 37.1
[2020-04-23 05:13] VITALS: BP 100/48; PULSE 74; RESP 18; TEMP 36.6
[2020-04-23] MEDS: 0.9% Saline Lock 10 ML Syringe IV (05:27)
[2020-04-23 05:31] LABS: Absolute Lymphocyte Count 5.16 X10^3/uL (0.83-4.51); Absolute Neutrophil Count 24.5 X10^3/uL (2.0-7.7); Basophil# 0.11 X10^3/uL; Basophil% 0.3 % (0-1); Eosinophil# 0.04 X10^3/uL; Eosinophils% 0.1 % (0-5); Hematocrit 32.6 % (37-47); Hemoglobin 10.7 g/dL (12.0-15.0); Lymphocyte # 5.16 X10^3/ul (4.0); Lymphocyte % 15.6 % (19-41); Mean Corp Hgb Conc 32.8 g/dL (32-36); Mean Corpuscular Volume 94.5 fL (81-99); Mean Platelet Vol. 9.3 fl (6.2-12.0); Monocyte# 1.84 X10^3/uL; Monocyte% 5.6 % (0-10); NRBC Flagged by Analyzer 0 % (0-5); Neutrophil # 24.49 X10^3/uL (2.7-7.7); Neutrophil % 74.1 % (47-70); POSITIVE COUNT YES; POSITIVE DIFFERENTIAL YES; Platelet Count 355 K/mm3 (150-450); RBC Distribution Width SD 44.7 fl (35.1-43.9); Red Blood Count 3.45 M/mm3 (4.2-5.4)
[2020-04-23 05:36] LABS: Differential Indicated SCAN CRITERIA MET; White Blood Count 33.1 K/mm3 (4.4-11.0)
[2020-04-23 06:17] LABS: Differential Comment SCANNED
--- NOTE | 2020-04-23 08:40 | PN.OBGYN_ITS ---
Patient Problems: Active and Suspected Problems History of precipitous delivery (Acute) 34 weeks gestation of (Acute) Subjective: Denies complaints - Physical Exam Vitals/I&O's: Vital Signs Temp Pulse Resp BP Pulse Ox 97.9 F 74 18 100/48 L 97 04/23/20 05:13 04/23/20 05:13 04/23/20 05:13 04/23/20 05:13 04/22/20 17:11 Oxygen Delivery Method Room Air Weight: 141 lb Body Mass Index (BMI) 23.4 Intake and Output for Last 24 Hours 04/21/20 04/22/20 04/23/20 23:59 23:59 23:59 Intake Total 900 / 900 Output Total 150 / 150 Balance 750 / 750 General: Alert, Oriented x3 Abdomen: Soft, Non Tender, Non-Distended - ff mid & below umb Extremities: No Calf Tenderness Laboratory Results 04/22/20 12:30: WBC 43.2 H*, RBC 3.46 L, Hgb 10.7 L, Hct 32.2 L, MCV 93.1, MCH 30.9, MCHC 33.2, RDW Std Deviation 43.9, RDW Coeff of Jennifer 13.0, Plt Count 322, MPV 9.4, Immature Gran % (Auto) 4.800 H, Neut % (Auto) 81.5 H, Lymph % (Auto) 8.7 L, [place] % (Auto) 4.7, Eos % (Auto) 0.0, Baso % (Auto) 0.3, Absolute Neuts (auto) 35.2 H, Absolute Lymphs (auto) 3.75, Nucleated RBC % 0, Differential Comment SCANNED, Diff Path Review May , Platelet Estimate ADEQUATE, Hypochromasia RARE 04/22/20 12:30: Blood Type A NEGATIVE, Antibody Screen Not Reportable 04/22/20 12:30: Antibody Screen NEGATIVE 04/22/20 12:55: WBC 45.2 H*, RBC 3.39 L, Hgb 10.8 L, Hct 31.6 L, MCV 93.2, MCH 31.9, MCHC 34.2, RDW Std Deviation 44.1 H, RDW Coeff of Jennifer 13.0, Plt Count 332, MPV 9.5, Differential Comment SCANNED 04/23/20 05:20: WBC 33.1 H*, RBC 3.45 L, Hgb 10.7 L, Hct 32.6 L, MCV 94.5, MCH 31.0, MCHC 32.8, RDW Std Deviation 44.7 H, RDW Coeff of Jennifer 13.0, Plt Count 355, MPV 9.3, Immature Gran % (Auto) 4.300 H, Neut % (Auto) 74.1 H, Lymph % (Auto) 15.6 L, [place] % (Auto) 5.6, Eos % (Auto) 0.1, Baso % (Auto) 0.3, Absolute Neuts (auto) 24.5 H, Absolute Lymphs (auto) 5.16 H, Nucleated RBC % 0, Differential Comment SCANNED, Diff Path Review October04/23/20 05:20: Screen NEGATIVE, Baby's Blood Type O POSITIVE, Baby's [place] NEGATIVE Current Medications Acetaminophen (Acetaminophen 500 Mg Tablet) 1,000 mg PO Q8H PRN PRN PRN Reason: Pain Score 1-10 Bisacodyl (Bisacodyl 10 Mg Suppository) 10 mg RECTAL UD PRN PRN Reason: If no BM Dibucaine (Dibucaine 30 Gm Tube) 1 applic TOPICAL TID PRN PRN; Protocol PRN Reason: Discomfort Hydrocortisone (Hydrocortisone 2.5% Crm) 1 applic TOPICAL TID PRN PRN; Protocol PRN Reason: Discomfort Ibuprofen (Ibuprofen 600 Mg Tablet) 600 mg PO Q6H PRN PRN PRN Reason: Pain Score 1-10 Last Admin: 04/22/20 21:01 Dose: 600 mg Documented by: Influenza Virus Vaccine Quadrival (Influenza Vaccine (6mos+)/Pf 0.5 Ml Syringe) 0.5 ml IM .ONCE ONE Stop: 04/23/20 10:01 Methylergonovine Maleate (Methylergonovine 0.2 Mg/Ml Ampul) 0.2 mg IM X1 PRN PRN Reason: Excess bleeding/uterine atony Ondansetron HCl (Ondansetron 4 Mg/2 Ml Vial) 4 mg IV Q4H PRN PRN PRN Reason: Nausea Senna/Docusate Sodium (Senna/Docusate Sodium 1 Tablet) 1 - 2 tablet PO DAILY PRN PRN PRN Reason: Constipation Simethicone (Simethicone 80 Mg Tablet) 80 mg PO PCHS PRN PRN Reason: Indigestion/Stomach pain Sodium Chloride (0.9% Saline Lock 10 Ml Syringe) 5 - 15 ml IV UD PRN PRN Reason: SALINE FLUSH Last Admin: 04/23/20 05:27 Dose: 10 ml Documented by: Medical Necessity - Tobacco Use Smoking Status: Former smoker Assessment/Plan All Active Problems 28 weeks gestation of (Acute) History of delivery (Acute) contractions (Acute) Rh negative state in antepartum period (Acute) History of bipolar disorder (Acute) History of precipitous delivery (Acute) History of seizure disorder (Acute) 32 weeks gestation of (Acute) 34 weeks gestation of (Acute) PPD#1 Routine care ID - patient with isolated wbc that has been persistently elevated in the . Repeat wbc is lower today. No other signs/symptoms of infection so will continue to monitor.
[2020-04-23 08:50] VITALS: BP 97/47; PULSE 78; RESP 16; TEMP 36.3; O2SAT 98
[2020-04-23 13:56] LABS: Pathologist Review Reviewed
[2020-04-23 13:58] LABS: Pathologist Review Reviewed
[2020-04-23 15:26] VITALS: BP 100/53; PULSE 77; RESP 16; TEMP 37.4
[2020-04-23 19:50] VITALS: BP 113/64; PULSE 88; RESP 18; TEMP 36.6
[2020-04-24 01:20] VITALS: BP 122/82; PULSE 72; RESP 18; TEMP 36.6
[2020-04-24 06:17] LABS: Basophil# 0.13 X10^3/uL; Eosinophil# 0.14 X10^3/uL; Hematocrit 32.7 % (37-47); Hemoglobin 10.7 g/dL (12.0-15.0); Mean Corp Hgb Conc 32.7 g/dL (32-36); Mean Corpuscular Hgb 31.1 pg (27.0-32.0); Mean Corpuscular Volume 95.1 fL (81-99); Mean Platelet Vol. 9.4 fl (6.2-12.0); Monocyte# 1.41 X10^3/uL; NRBC Flagged by Analyzer 0 % (0-5); POSITIVE COUNT YES; POSITIVE DIFFERENTIAL YES; POSITIVE MORPHOLOGY YES; Platelet Count 375 K/mm3 (150-450); RBC Distribution Width CV 12.9 % (11.6-14.6); RBC Distribution Width SD 44.6 fl (35.1-43.9); Red Blood Count 3.44 M/mm3 (4.2-5.4); White Blood Count 24.1 K/mm3 (4.4-11.0)
[2020-04-24 06:21] LABS: Differential Indicated SCAN CRITERIA MET
[2020-04-24 06:30] LABS: Scan Smear per Review Criteria MANUAL DIFF
[2020-04-24 07:00] LABS: Atypical Lymphocyte 1+ %; Eosinophil 1 % (0-5); Lymphocyte 32 % (19-41); Monocyte 5 % (0-10); Neutrophil-Segmented 62 % (47-70); Platelet Estimate ADEQUATE (ADEQ); Red Cell Morphology NORM C+C NORMAL (NORM C&C); Total Cells Counted 100 (MANUAL DIFF)
[2020-04-24 07:01] LABS: Toxic Granulation 2+
[2020-04-24 07:02] LABS: Absolute Lymphocyte Count 7.71 X10^3/uL (0.83-4.51); Absolute Neutrophil Count 14.9 X10^3/uL (2.0-7.7); Lymphocyte # 7.71 X10^3/ul (4.0)
[2020-04-24 08:00] VITALS: BP 98/62; PULSE 78; RESP 16; TEMP 36.9
--- NOTE | 2020-04-24 11:59 | DCINST_ITS ---
Discharge Diet: No Restrictions Discharge Activity: May Drive, May Shower May resume sexual activity in: 6 weeks Additional Instructions: If you experience any of the following, contact your healthcare provider. * Bleeding that soaks a pad every hour for 2 hours * Fever 100.4 or higher * Unrelieved incision or abdominal pain * Swelling, redness, discharge or bleeding from your incision or episiotomy site * Your incision begins to separate * Problems urinating (including inability to urinate or burning while urinating). * Visual changes * Severe headache * Flu-like symptoms * Pain or redness in one of both of your breasts * Pain, warmth, tenderness or swelling in your legs, especially the calf area * Frequent nausea and vomiting * Symptoms of depression or anxiety If you experience any of the following, call 911 or go to the nearest Emergency Room. * Chest pain * Problems breathing * Seizure activity * Partial or complete paralysis of a body part, slurred speech, weakness or drooping of the face, or a sudden inability to walk or hold your balance Allergies/Adverse Reactions: Allergies acetaminophen [From Vicodin] Allergy (Verified 04/22/20 12:15) Upset Stomach hydrocodone bitartrate [From Vicodin] Allergy (Verified 04/22/20 12:15) Upset Stomach latex Allergy (Verified 04/22/20 12:15) Hives Medications to take at Discharge Vits [Prenatabs FA ] 1 tab PO DAILY 04/12/20 Acetaminophen [Tylenol] 1,000 mg PO Q8H PRN PRN tab 04/24/20 Ibuprofen [Motrin] 600 mg PO Q6H PRN PRN tab 04/24/20 Primary Care Physician: Chris Vincent DO [Primary Care Provider] - Test Results: Test results from this visit will be discussed in further detail at your follow- up appointment, if applicable.
--- NOTE | 2020-04-24 11:59 | PCM.DCVAG ---
Discharge Diet: No Restrictions Discharge Activity: May Drive, May Shower May resume sexual activity in: 6 weeks Additional Instructions: If you experience any of the following, contact your healthcare provider. Bleeding that soaks a pad every hour for 2 hours Fever 100.4 or higher Unrelieved incision or abdominal pain Swelling, redness, discharge or bleeding from your incision or episiotomy site Your incision begins to separate Problems urinating (including inability to urinate or burning while urinating). Visual changes Severe headache Flu-like symptoms Pain or redness in one of both of your breasts Pain, warmth, tenderness or swelling in your legs, especially the calf area Frequent nausea and vomiting Symptoms of depression or anxiety If you experience any of the following, call 911 or go to the nearest Emergency Room. Chest pain Problems breathing Seizure activity Partial or complete paralysis of a body part, slurred speech, weakness or drooping of the face, or a sudden inability to walk or hold your balance Allergies/Adverse Reactions: Allergies acetaminophen [From Vicodin] Allergy (Verified 04/22/20 12:15) Upset Stomach hydrocodone bitartrate [From Vicodin] Allergy (Verified 04/22/20 12:15) Upset Stomach latex Allergy (Verified 04/22/20 12:15) Hives Medications to take at Discharge Vits [Prenatabs FA ] 1 tab PO DAILY 04/12/20 Acetaminophen [Tylenol] 1,000 mg PO Q8H PRN PRN tab 04/24/20 Ibuprofen [Motrin] 600 mg PO Q6H PRN PRN tab 04/24/20 Primary Care Physician: Chris Vincent DO [Primary Care Provider] - Test Results: Test results from this visit will be discussed in further detail at your follow-up appointment, if applicable.
--- NOTE | 2020-04-24 12:00 | PCM.PN.OB ---
Patient Problems: Active and Suspected Problems History of precipitous delivery (Acute) 34 weeks gestation of (Acute) Subjective: No complaints - Physical Exam Vitals/I&O's: Vital Signs Temp Pulse Resp BP Pulse Ox 98.5 F 78 16 98/62 98 04/24/20 08:00 04/24/20 08:00 04/24/20 08:00 04/24/20 08:00 04/23/20 08:50 Oxygen Delivery Method Room Air Weight: 141 lb Body Mass Index (BMI) 23.4 Intake and Output for Last 24 Hours 04/22/20 04/23/20 04/24/20 23:59 23:59 23:59 Intake Total 900 / 900 Output Total 150 / 150 Balance 750 / 750 General: Alert, Oriented x3 Abdomen: Soft, Non Tender, Non-Distended - ff mid & below umb Extremities: No Calf Tenderness Neurological: Cranial nerves II-XII grossly intact Laboratory Results 04/22/20 12:30: Diff Path Review Reviewed 04/23/20 05:20: Diff Path Review Reviewed 04/24/20 06:05: WBC 24.1 H, RBC 3.44 L, Hgb 10.7 L, Hct 32.7 L, MCV 95.1, MCH 31.1, MCHC 32.7, RDW Std Deviation 44.6 H, RDW Coeff of Jennifer 12.9, Plt Count 375, MPV 9.4, Immature Gran % (Auto) REHABILITATION PROGRAM COORDINATOR, Neut % (Auto) REHABILITATION PROGRAM COORDINATOR, Lymph % (Auto) REHABILITATION PROGRAM COORDINATOR, [place] % (Auto) REHABILITATION PROGRAM COORDINATOR, Eos % (Auto) REHABILITATION PROGRAM COORDINATOR, Baso % (Auto) REHABILITATION PROGRAM COORDINATOR, Absolute Neuts (auto) 14.9 H, Absolute Lymphs (auto) 7.71 H, Total Counted 100, Neutrophils % (Manual) 62, Lymphocytes % (Manual) 32, Monocytes % (Manual) 5, Eosinophils % (Manual) 1, Nucleated RBC % 0, Diff Path Review May foll, Atypical Lymphocytes 1+, Toxic Granulation 2+, Platelet Estimate ADEQUATE, RBC Morphology NORM C+C Current Medications Acetaminophen (Acetaminophen 500 Mg Tablet) 1,000 mg PO Q8H PRN PRN PRN Reason: Pain Score 1-10 Bisacodyl (Bisacodyl 10 Mg Suppository) 10 mg RECTAL UD PRN PRN Reason: If no BM Dibucaine (Dibucaine 30 Gm Tube) 1 applic TOPICAL TID PRN PRN; Protocol PRN Reason: Discomfort Hydrocortisone (Hydrocortisone 2.5% Crm) 1 applic TOPICAL TID PRN PRN; Protocol PRN Reason: Discomfort Ibuprofen (Ibuprofen 600 Mg Tablet) 600 mg PO Q6H PRN PRN PRN Reason: Pain Score 1-10 Last Admin: 04/22/20 21:01 Dose: 600 mg Documented by: Methylergonovine Maleate (Methylergonovine 0.2 Mg/Ml Ampul) 0.2 mg IM X1 PRN PRN Reason: Excess bleeding/uterine atony Ondansetron HCl (Ondansetron 4 Mg/2 Ml Vial) 4 mg IV Q4H PRN PRN PRN Reason: Nausea Senna/Docusate Sodium (Senna/Docusate Sodium 1 Tablet) 1 - 2 tablet PO DAILY PRN PRN PRN Reason: Constipation Simethicone (Simethicone 80 Mg Tablet) 80 mg PO PCHS PRN PRN Reason: Indigestion/Stomach pain Sodium Chloride (0.9% Saline Lock 10 Ml Syringe) 5 - 15 ml IV UD PRN PRN Reason: SALINE FLUSH Last Admin: 04/23/20 05:27 Dose: 10 ml Documented by: Medical Necessity - Tobacco Use Smoking Status: Former smoker Assessment/Plan All Active Problems 28 weeks gestation of (Acute) History of delivery (Acute) contractions (Acute) Rh negative state in antepartum period (Acute) History of bipolar disorder (Acute) History of precipitous delivery (Acute) History of seizure disorder (Acute) 32 weeks gestation of (Acute) 34 weeks gestation of (Acute) PPD#2 D/c to hotel Elevated wbc - trending down. Will recheck in 1-2 weeks.
[2020-04-26 13:59] LABS: Pathologist Review Reviewed
== END 2020-04-24 12:15 | disposition home or self-care (01) | DRG 807 ==
PROVIDERS: Obstetrics & Gynecology; Admitting Provider Advanced Practice Midwife; PCP Student in an Organized Health Care Education/Training Program; Referring Provider Advanced Practice Midwife; Visit Provider Advanced Practice Midwife
DX: O62.3 Precipitate labor (principal); Z37.0 Single live birth; Z3A.34 34 weeks gestation of pregnancy; O42.913 Preterm premature rupture of membranes, unspecified as to length of time between rupture and onset of labor, third trimester; O99.334 Smoking (tobacco) complicating childbirth; F17.200 Nicotine dependence, unspecified, uncomplicated; Z23 Encounter for immunization
CPT/HCPCS: 85025; 85027; 85461; 86850; 86900; 86901; 90384; 99218; 90686; A4216; G0378; J2790

== ENCOUNTER 2025-02-20 20:16 | Emergency (ER) | payer BC, SELFPAY ==
[2025-02-20 20:19] VITALS: BP 128/76; PULSE 88; RESP 18; TEMP 37.1; O2SAT 98; BMI 18.6
--- NOTE | 2025-02-20 20:29 | ED.RN ---
Pt offered ice pack and dressing for head wound after checking in. Pt asked how long the wait is and this RN provided education on the inability to provide a timeline d/t multiple variables. Pt was told it could be likely an hour but it may be faster or it may be longer. Pt decided not to stay and stated she needed to be seen sooner than that. Pt LWBS.
--- OUTSIDE RECORDS SUMMARY | 2025-02-20 20:41 | XMS RPT_ITS | CCD ---
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 Fully Assessed Prescriptions as of 08/23/2023 - albuterol HFA (PROVENTIL HFA, VENTOLIN HFA) 90 mcg/actuation inhaler Inhale 2 Puffs as instructed every 4 hours as needed for wheezing/shortness of breath. - buPROPion (WELLBUTRIN) 75 mg tablet Take 1 tablet by mouth twice daily. - nicotine (NICODERM) 21 mg/24 hr Apply 1 Patch as directed every 24 hours. Remove patch at bedtime - Nicotine Polacrilex (NICORETTE) [address] 1 Lozenge between cheek and gum as needed. 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/06/2008 10/28/2019 Bipolar disorder, mixed [F31.60] 04/05/2009 Congenital pes planus [Q66.50] 05/19/2009 11/16/2017 Fam hx-ischem heart disease [Z82.49] 12/21/2010 Warts [B07.9] 10/13/2013 09/20/2017 Chronic right-sided low back pain with right-si*08/01/2016 10/28/2019 Nail biting [F98.8] 09/06/2016 10/28/2019 Hair pulling [F63.3] 09/06/2016 10/28/2019 Seizure disorder (HCC) [G40.909] 01/08/2017 Chronic midline low back pain with sciatica [M5*01/08/2017 10/28/2019 Anxiety disorder [F41.9] 01/08/2017 Routine physical examination [Z00.00] 01/08/2017 07/30/2017 History of delivery, currently *07/05/2017 02/27/2018 History of precipitous labor and deliveries, an*07/05/2017 History of depression [Z87.59, Z86.5*07/05/2017 02/27/2018 History of petit-mal seizures [Z86.69] 07/05/2017 Family history of congenital heart defect [Z82.*07/05/2017 02/27/2018 Rh negative state in antepartum period [O26.899*07/05/2017 History of back surgery [Z98.890] 07/05/2017 Patient requested diagnostic testing [Z01.89] 07/05/2017 10/17/2017 Less than 8 weeks gestation of [Z3A.0*07/13/2017 07/30/2017 Vitamin D deficiency [E55.9] 07/13/2017 Request for sterilization [Z30.2] 12/11/2017 Positive GBS test [B95.1] 01/23/2018 02/27/2018 Routine physical examination [Z00.00] 07/12/2018 10/28/2019 Anemia [D64.9] 07/12/2018 10/28/2019 History of delivery, currently *10/28/2019 Elevated glucose level [R73.09] 03/17/2020 labor [O60.00] 03/17/2020 Prematurity [P07.30] 03/18/2020 History of delivery [Z87.51] 03/18/2020 History of precipitous delivery [Z87.59] 03/18/2020 Abnormal glucose measurement [R73.09] 03/18/2020 Leukocytosis [D72.829] 03/18/2020 Epilepsy (HCC) [G40.909] 03/18/2020 Anemia in [O99.019] 03/18/2020 Contraceptive management [Z30.9] 03/18/2020 Fatigue [R53.83] 05/29/2023 Well adult exam [Z00.00] 05/29/2023 Hair loss [L65.9] 05/29/2023 Encounter Status:Closed by RADHA PRABHAKAR on 08/23/23 Normal [facility] 25(OH)D3 SerPl-ncon 2023 25-hydroxyvitamin D3 [Mass/Vol] 27.2 ng/mL Low 31.0-80.0 [facility] Comment on above: Order Comment: Speci men Type: BLOOD SPECIMEN Ordering Facility: [facility] Address: [address] [place] [address] Result Comment: Clas sification of 25 OH Vitamin D status: Deficiency/Insufficiency: < or = 30 ng/ml. Sufficiency/Optimal Levels: 31-80 ng/mL Toxicity: > 100 ng/mL. Test performed by chemiluminescent immunoassay. Performed By: #### 5 7021-8 #### [facility] CLIA [id number] [address] [place] [address] [place] Basic metabolic 2000 panelon 08-21-2023 Anion gap [Moles/Vol] 13 mmol/L Normal 9-18 [facility] Comment on above: Order Comment: Leander arambula Type: BLOOD SPECIMEN Ordering Facility: [facility] Address: [address] [place] [address] Performed By: #### 5 7021-8 #### [facility] CLIA [id number] [address] [place] [address] [place] Calcium [Mass/Vol] 9.7 mg/dL Normal 8.5-10.2 [facility] Comment on above: Order Comment: Speci men Type: BLOOD SPECIMEN Ordering Facility: [facility] Address: [address] [place] [address] Performed By: #### 5 7021-8 #### [facility] CLIA [id number] [address] [place] [address] [place] Chloride [Moles/Vol] 104 mmol/L Normal 97-105 [facility] Comment on above: Order Comment: Speci men Type: BLOOD SPECIMEN Ordering Facility: [facility] Address: [address] [place] [address] Performed By: #### 5 7021-8 #### [facility] CLIA [id number] [address] [place] [address] [place] CO2 [Moles/Vol] 22 mmol/L Normal 22-30 [facility] Comment on above: Order Comment: Speci men Type: BLOOD SPECIMEN Ordering Facility: [facility] Address: [address] [place] [address] Performed By: #### 5 7021-8 #### [facility] CLIA [id number] [address] [place] [address] [place] Creatinine [Mass/Vol] 0.73 mg/dL Normal 0.58-0.96 [facility] Comment on above: Order Comment: Speci men Type: BLOOD SPECIMEN Ordering Facility: [facility] Address: [address] [place] [address] Performed By: #### 5 7021-8 #### [facility] CLIA [id number] [address] [place] [address] [place] Creatinine and Glomerular filtration rate.predicted panel (S/P/Bld) 109 mL/min/1.73m??? Normal >=60 [facility] Comment on above: Order Comment: Leander arambula Type: BLOOD SPECIMEN Ordering Facility: [facility] Address: [address] [place] [address] Result Comment: Zuleika mated Glomerular Filtration Rate (eGFR) is calculated using the 2020 CKD-EPI creatinine equation. This equation utilizes serum creatinine, sex, and age as parameters. The creatinine assay has traceable calibration to isotope dilution-mass spectrometry. Refer to KDIGO guidelines for clinical interpretation. In patients with unstable renal function, e.g. those with acute kidney injury, the eGFR may not accurately reflect actual GFR. Performed By: #### 5 7021-8 #### [facility] CLIA [id number] [address] [place] [address] [place] Glucose [Mass/Vol] 102 mg/dL High 74-99 [facility] Comment on above: Order Comment: Leander arambula Type: BLOOD SPECIMEN Ordering Facility: [facility] Address: [address] [place] [address] Result Comment: The [place] Diabetes Association (ADA) provides guidance for cutoff values for fasting glucose and random glucose. The ADA defines fasting as no caloric intake for at least 8 hours. Fasting plasma glucose results between 100 to 125 mg/dL indicate increased risk for diabetes (prediabetes). Fasting plasma glucose results greater than or equal to 126 mg/dL meet the criteria for diagnosis of diabetes. In the absence of unequivocal hyperglycemia, results should be confirmed by repeat testing. In a patient with classic symptoms of hyperglycemia or hyperglycemic crisis, random plasma glucose results greater than or equal to 200 mg/dL meet the criteria for diagnosis of diabetes. Reference: Standards of Medical Care in Diabetes 2016, [place] Diabetes Association. Diabetes Care. 2016.39(Suppl 1). Performed By: #### 5 7021-8 #### [facility] CLIA [id number] [address] [place] [address] [place] Potassium [Moles/Vol] 3.6 mmol/L Low 3.7-5.1 [facility] Comment on above: Order Comment: Leander arambula Type: BLOOD SPECIMEN Ordering Facility: [facility] Address: [address] [place] [address] Performed By: #### 5 7021-8 #### [facility] CLIA [id number] [address] [place] [address] [place] Sodium [Moles/Vol] 139 mmol/L Normal 136-144 [facility] Comment on above: Order Comment: Speci men Type: BLOOD SPECIMEN Ordering Facility: [facility] Address: [address] [place] [address] Performed By: #### 5 7021-8 #### [facility] CLIA [id number] [address] [place] [address] [place] Urea nitrogen [Mass/Vol] 13 mg/dL Normal 7-21 [facility] Comment on above: Order Comment: Speci men Type: BLOOD SPECIMEN Ordering Facility: [facility] Address: [address] [place] [address] Performed By: #### 5 7021-8 #### [facility] CLIA [id number] [address] [place] [address] [place] XR CHEST 2V FRONTAL/LATon [facility] XR Chest PA and Lateralon IMPRESSION: Stable chest. No acute cardiopulmonary process. [employer] Assistant: JING Transcribe Date/Time: Dec 08 2021 3:19P Dictated by : LISBET NELSON MD This examination was interpreted and the report reviewed and electronically signed by: LISBET NELSON MD on Dec 08 2021 3:20PM EST [email or web address] E_DIVISION OF RADIOLOGY * * *Final Report* * * DATE OF EXAM: Dec 08 2021 3:17PM WOX [id number] - XR CHEST 2V FRONTAL/LAT / PROCEDURE REASON: multiple diagnoses * * * * Physician Interpretation * * * * EXAMINATION: CHEST RADIOGRAPH (2 VIEW FRONTAL & LATERAL) CLINICAL HISTORY: Influenza-like illness. Costochondritis. MQ: XC2_6 EXAM DATE/TIME: 12/08/2021 3:17 PM COMPARISON: Comparison is made to prior chest radiographs dated 08/31/2021 and 19 May 2019 RESULT: Lines, tubes, and devices: None. Lungs and pleura: There is no focal consolidation or acute pleural process/fluid. There is no vascular redistribution to suggest pulmonary edema. Cardiomediastinal silhouette: The cardiac, mediastinal and hilar shadows are unchanged and remain within normal limits. Other: The bony structures are intact [id number] E_DIVISION OF RADIOLOGY Provider, Cynthia Marylin [facility] - 12/08/2021 * * *Final Report* * * DATE OF EXAM: Dec 08 2021 3:17PM WOX [id number] - XR CHEST 2V FRONTAL/LAT / PROCEDURE REASON: multiple diagnoses * * * * Physician Interpretation * * * * EXAMINATION: CHEST RADIOGRAPH (2 VIEW FRONTAL & LATERAL) CLINICAL HISTORY: Influenza-like illness. Costochondritis. MQ: XC2_6 EXAM DATE/TIME: 12/08/2021 3:17 PM COMPARISON: Comparison is made to prior chest radiographs dated 08/31/2021 and 19 May 2019 RESULT: Lines, tubes, and devices: None. Lungs and pleura: There is no focal consolidation or acute pleural process/fluid. There is no vascular redistribution to suggest pulmonary edema. Cardiomediastinal silhouette: The cardiac, mediastinal and hilar shadows are unchanged and remain within normal limits. Other: The bony structures are intact IMPRESSION IMPRESSION: Stable chest. No acute cardiopulmonary process. [employer] Assistant: JING Transcribe Date/Time: Dec 08 2021 3:19P Dictated by : LISBET NELSON MD This examination was interpreted and the report reviewed and electronically signed by: LISBET NELSON MD on Dec 08 2021 3:20PM EST [facility] Radiology Study observation (narrative) [facility] XR Chest PA and LateralOrder ed By: [facility] Provider on 12-08-2021 [facility] XR Chest PA and Lateralon IMPRESSION: No acute radiographic abnormality. [employer] Assistant: JING Transcribe Date/Time: Aug 31 2021 9:18A Dictated by : DAVID BAXTER MD This examination was interpreted and the report reviewed and electronically signed by: DAVID BAXTER MD on Aug 31 2021 9:18AM [facility] DIVISION OF RADIOLOGY * * *Final Report* * * DATE OF EXAM: Aug 31 2021 9:17AM WOX [id number] - XR CHEST 2V FRONTAL/LAT / PROCEDURE REASON: Cough * * * * Physician Interpretation * * * * EXAMINATION: CHEST RADIOGRAPH (2 VIEW FRONTAL & LATERAL) CLINICAL HISTORY: Cough MQ: XC2_6 EXAM DATE/TIME: 08/31/2021 9:17 AM COMPARISON: Chest x-ray on 05/19/2019. RESULT: Lines, tubes, and devices: None. Lungs and pleura: No consolidation. No lung mass. No pleural effusion. No pneumothorax. Cardiomediastinal silhouette: Normal cardiomediastinal silhouette. Bones and soft tissues: Unremarkable. DIVISION OF RADIOLOGY Provider, [facility] - 08/31/2021 * * *Final Report* * * DATE OF EXAM: Aug 31 2021 9:17AM WOX 5291 - XR CHEST 2V FRONTAL/LAT / PROCEDURE REASON: Cough * * * * Physician Interpretation * * * * EXAMINATION: CHEST RADIOGRAPH (2 VIEW FRONTAL & LATERAL) CLINICAL HISTORY: Cough MQ: XC2_6 EXAM DATE/TIME: 08/31/2021 9:17 AM COMPARISON: Chest x-ray on 05/19/2019. RESULT: Lines, tubes, and devices: None. Lungs and pleura: No consolidation. No lung mass. No pleural effusion. No pneumothorax. Cardiomediastinal silhouette: Normal cardiomediastinal silhouette. Bones and soft tissues: Unremarkable. IMPRESSION IMPRESSION: No acute radiographic abnormality. [employer] Assistant: PSCB Transcribe Date/Time: Aug 31 2021 9:18A Dictated by : DAVID BAXTER MD This examination was interpreted and the report reviewed and electronically signed by: DAVID BAXTER MD on Aug 31 2021 9:18AM EST [facility] Radiology Study observation (narrative) [facility] XR Chest PA and LateralOrder ed By: [facility] Provider on 08-31-2021 [facility] PROGRESSon 03-19-2020 PROGRESS HNO ID: [id number] Author: Pham Fragoso (Tech) Service: Obstetrics Author Type: Technologist Type: Progress Notes Filed: 03/19/2020 8:42 AM Note Text: US completed in Eval. Vertex presentation. DVP= 5.1 cm, EFW = 1316 grams, 48%. Femur length <3%, patient states femur has measured short on past scans. Veronica Phillips RDMS Normal [facility] PROGRESS HNO ID: [id number] Author: Yoan Moreno Service: Obstetrics Author Type: Physician Type: Progress Notes Filed: 03/19/2020 6:58 AM Note Text: OBSTETRICS ANTEPARTUM PROGRESS NOTE SERVICE DATE: 03/19/2020 SERVICE TIME: 6:10 AM ASSESSMENT AND PLAN: 34 year old EGA:29w1d admitted for Labor arrested at 1.5 cm dilation. Active Hospital Problems Diagnosis Date Noted - Prematurity 03/18/2020 Priority: A Overview Note: -S/p Betamethasone course -S/p Magnesium x12hrs for neuroprotection -Growth US at 23w6d 1#5oz Completed for measuring 27% at anatomy Measuring appropriately on growth curve at 23w6d -Repeat growth US ordered, will call eval today for appt time -Cephalic -Regular diet -CEFM -Admit to [facility] delivery -PMG c/s - labor 03/17/2020 Priority: B Overview Note: -Made change from closed->1cm->1.5/50/-4 -CL not performed as it would not change plan of care -BV/Trich neg, GC/CT neg, urine culture pending -GBS pending -Indomethacin for tocolysis until today at 1700 (48 hours total) -Contractions resolved, desires to go home today - History of delivery 03/18/2020 Overview Note: -1st delivery: 36w0d due to PTL -2nd delivery: 36w2d due to PTL -3rd delivery: 34w5d due to PTL -SVDx1 with largest baby being 5#13oz -Receives Sellers qWednesdays (last dose this am) - History of precipitous delivery 03/18/2020 Overview Note: -Endorses multiple precipitous deliveries -Presented at complete in most recent delivery - Abnormal glucose measurement 03/18/2020 Overview Note: -Abnormal 1hr GCT -Normal 3hr GTT -Growth US as above - Leukocytosis 03/18/2020 Overview Note: -WBC 26 on admission -No maternal/ tachycardia, fundal tenderness, malodorous discharge -S/p BMZ at 1645 (lab at 2000) -Low suspicion for chorioamnionitis at this time -Continue to monitor closely - Epilepsy ([facility]) 03/18/2020 Overview Note: -H/o petit-mal seizure -Diagnosed in 2014 -Has not taken medication since 2018 -Last seizure >1yr ago - Anemia in 03/18/2020 Overview Note: -Taking PO iron -Hgb 10.8 on admission -Resume PO iron with regular diet - Contraceptive management 03/18/2020 Overview Note: -Desires BTL if she were to have -Informed consent obtained - History of back surgery 07/05/2017 Overview Note: -Microdiscectomy at T12-L1 -Has had epidural in previous deliveries - Rh negative state in antepartum period 07/05/2017 Overview Note: -S/p Rhogam 03/10/20 Anticipate discharge home today since her contractions have resolved and she received full course of Betamethasone. Plan for growth US prior to discharge. SUBJECTIVE: No current vaginal bleeding, No current leaking of fluid, No contractions, Good movement, No shortness of breath or chest pain and No calf tenderness. Reports doing well overnight and that her contractions have resolved. She has intermittent tightening of her abdomen when walking, but it does not chicken picker on [place]. She is wondering when she will go home. She is wanting to go home today to her other kids. OBJECTIVE: LAST VITALS: Pulse BP Resp O2 Sat Temp Pain 102 114/64 18 99 % 36.5 ?C (97.7 ?F) 0 PHYSICAL EXAM: General: WD, WN Heart: RR, S1, S2 Lungs: clear to auscultation Abdomen: soft, nontender, no masses Uterus: soft, NT Extremities: no edema MONITORING/ASSESSMENT: NST with discrete interpretation : MONITORING/ASSESSMENT: Baseline: 140 bpm (03/19/20 0500 : Theodora Holman RN) Variability: Moderate (6-25 bpm) (03/19/20 0500 : Theodora Holman RN) Accelerations: Present (03/19/20 0500 : Theodora Holman RN) Decelerations: Decelerations: None (03/19/20 0500 : Theodora Sun) JULIUS Holman), Decel Frequency: Intermittent (03/18/20 1900 : Camila Sun) JULIUS Akers) Contractions: Not present (03/19/20 0500 : Theodora Sun) JULIUS Holman) Frequency: x2 (03/18/20 1600 : Camila Sun) JULIUS Akers) NST INTERPRETATION: NST Interpretation: FHR Category: 1 (03/19/20 0500 : Theodora Sun) JULIUS Holman) LABS Diagnostic tests reviewed for today's visit: Most recent labs SIGNATURE: Ivett Estrada DO PATIENT NAME: Martine Licea DATE: March 19, 2020 TIME: 6:09 AM I personally saw and examined the patient on 03/19/2020. I reviewed the resident's note. I agree with the resident's assessment and plan unless otherwise noted. Patient clinically improved. Stopped pumping. No contractions. Discharge home. Follow up in [place] next Sun. Yoan Moreno MD [facility] PROGRESS HNO ID: [id number] Author: Michelle Lawler Service: Obstetrics Author Type: Resident Type: Progress Notes Filed: 03/18/2020 11:07 PM Note Text: Patient complaining to RN of pink discharge vs spotting when wiping. SSE performed and negative for pooling, negative nitrazine and negative ferning. No blood in the vaginal vault. Cervical mucus present. Reviewed with patient that suspect spotting is from multiple exams. Patient very comfortable and denies contractions. Cervix visually appears to be unchanged from 1.5cm. Michelle Lawler DO Pager # [phone] 03/18/2020 11:07 PM Normal [facility] Routine, GBS PCRon 03-19-2020 Routine, GBS PCR Positive Abnormal Negative [facility] Comment on above: Performed By: #### G BSP #### [address] [address] Antibody Idon 03-18-2020 Antibody Id See Below Normal [facility] Comment on above: Result Comment: The patient has received RhoGam recently and may be demonstrating Anti-D as a result of the injection. Performed By: #### A BID #### [address] [address] CONSULTon 03-18-2020 CONSULT HNO ID: [id number] Author: Melani Medranorosa Service: Neonatology Author Type: Physician Type: Consults Filed: 03/18/2020 9:27 AM Note Text: NEONATOLOGY CONSULT SERVICE DATE: 03/18/2020 Admission Date: 03/17/2020 SERVICE TIME: 544 Date of : 1985 Age: [age] year old Sex: female Primary Care Physician: Chris Mendosa DO Consulting Produce Clerk: Kim Hutchinson APRN.PROJECT ARCHITECT Subjective Consultation for this evaluation was requested by Dr. Estrada. Reason for consultation: labor at 29 weeks gestational age (female infant to be named Enedina) Recommendations will be communicated back to the requesting physician by way of shared medical record or letter. Objective MATERNAL HISTORY: Mother is a 34 year old female, , who is at 29w0d with an KANWAL of 06/03/2020, by Ultrasound dating method. LMP: Patient's last menstrual period was 08/05/2019 (lmp unknown). Maternal Hospital Problems: ACTIVE PROBLEM LIST Bipolar Disorder, Mixed (Hcc) Fam Hx-Ischem Heart Disease Seizure Disorder (Hcc) Anxiety Disorder History of Precipitous Labor and Deliveries, Antepartum History of Petit-Mal Seizures Rh Negative State in Antepartum Period History of Back Surgery Vitamin D Deficiency Request for Sterilization History of Delivery, Currently in First Trimester Elevated Glucose Level Labor Prematurity History of Delivery History of Precipitous Delivery Abnormal Glucose Measurement Leukocytosis Epilepsy (Hcc) Anemia in Contraceptive Management Maternal Meds: No current facility-administered medications on file prior to encounter. Current Outpatient Medications on File Prior to Encounter Medication Sig - ferrous sulfate (IRON ORAL) Take by mouth. - omeprazole (PRILOSEC) 10 mg capsule Take 1 capsule by mouth once daily. - HYDROXYprogesterone caproate, PF, (AARON) 250 mg/mL (1 mL) injection Inject 1 mL intramuscularly one time a week for 21 doses. - Cholecalciferol, Vitamin D3, 50 mcg (2,000 unit) cap Take 1 capsule by mouth once daily. - ibuprofen (MOTRIN) 600 mg tablet EVERY 6 HOURS PRN For Pain Current Facility-Administered Medications Medication Dose Route Frequency - lactated ringers infusion 5-30 mL/hr INTRAVENOUS CONTINUOUS - betamethasone acetate-betamethasone sodium phosphate 12 mg injection (CELESTONE) 12 mg INTRAMUSCULAR q 24 HR - sodium chloride 0.9 % (flush) 2-10 mL (BD POSIFLUSH) 2-10 mL INTRAVENOUS q 12 H - calcium gluconate 1 g injection 1 g INTRAVENOUS PRN - indomethacin 25 mg cap(s) (INDOCIN) 25 mg ORAL q 6 H - penicillin G potassium 3 Million Units in dextrose (iso-osmotic) 50 mL 3 Million Units INTRAVENOUS q 4 H - vitamin with folic acid 1 mg 1 tablet 1 tablet ORAL DAILY - ferrous sulfate 325 mg tab(s) 325 mg ORAL DAILY complications: See hospital problem list The following was discussed with mother and father GENERAL: Neonatology presence and role at delivery: Yes Possible need for resuscitation: Yes DNR status: N/A Need for admission to NICU: Yes Offered tour of NICU: No Discharge criteria: Yes Survival odds/morbidity AND mortality: No RESPIRATORY Risk of RDS/breathing problems: Yes Possible need for respiratory support: Yes CARDIOVASCULAR Discussed Hypotension, potential medical treatment: No Other (e.g. congenital heart disease): No NEUROLOGIC Risk of IVH/Neuro developmental delays: Yes Discussed need for evaluation by Tennis Coach for ROP: Yes Discussed risk for hearing deficit: No FEN Mother?s Preference: Breast: Yes. Benefits of breast milk: Yes Bottle: No Need for supplemental nutrition and/or IVFs: Yes INFECTION Risk factors for infection- congenital and nosocomial: Yes Need to start antibiotics: Yes HEME Possible need for blood transfusion: No. Verbal consent obtained: No ACCESS Possible need for UAC/UVC/PICC: Yes. Verbal consent obtained: No MISC. Name if Colorist, if known: Unknown, please contact patient's primary care physician Possible need for transfer to outside hospital: Yes Possible need for subspecialty evaluation: No Additional discussion: N/A Impression/Recommendati ons Assessment: Mother with labor at 29 weeks gestation Plan: Neonatology to be present at delivery Physician [id number] total time, including discussion: 60 minutes, more than 50 % of time devoted to coordination of care and/or counseling. SIGNATURE: Kim Hutchinson APRN.RADHA PATIENT NAME: Martine Licea DATE: March 18, 2020 TIME: 6:22 AM MGA I agree with the aforementioned assesement and plan I met with the mother and revisited the above, she did not have any further questions at this time NICU to be present at delivery Melani Luu MD Normal [facility] GC/Chlam Amp Genital/Rectal/ Oralon 03-18-2020 CT-DNA Amplified CT neg Normal [facility] Comment on above: Result Comment: Nega tive for Chlamydia trachomatis by amplification. Performed By: #### G CCTP #### [facility] [address] [address] GC-DNA Amplified GC neg Normal [facility] Comment on above: Result Comment: Nega tive for Neisseria gonorrhoeae by amplification. Performed By: #### G CCTP #### [facility] [address] [address] GC/Chlam Amp Source Vagina Normal [facility] Comment on above: Performed By: #### G CCTP #### [facility] [address] [address] PROGRESSon 03-18-2020 PROGRESS HNO ID: [id number] Author: Yoan Moreno Service: Obstetrics Author Type: Physician Type: Progress Notes Filed: 03/18/2020 11:39 AM Note Text: OBSTETRICS ANTEPARTUM PROGRESS NOTE SERVICE DATE: 03/18/2020 SERVICE TIME: 6:08 AM ASSESSMENT AND PLAN: 34 year old EGA:29w0d admitted for Labor arrested at 1.5 cm dilation. Active Hospital Problems Diagnosis Date Noted - Prematurity 03/18/2020 Overview Note: -S/p BMZx1 on 03/17, repeat in 24hrs -S/p Magnesium x12hrs for neuroprotection -Growth US at 23w6d 1#5oz Completed for measuring 27% at anatomy Measuring appropriately on growth curve at 23w6d -Repeat growth US ordered -Cephalic -NPO -CEFM -Admit to MFM, PPG for delivery -PMG c/s - History of delivery 03/18/2020 Overview Note: -1st delivery: 36w0d due to PTL -2nd delivery: 36w2d due to PTL -3rd delivery: 34w5d due to PTL -SVDx1 with largest baby being 5#13oz -Receives Sellers qWednesdays (last dose this am) - History of precipitous delivery 03/18/2020 Overview Note: -Endorses multiple precipitous deliveries -Presented at complete in most recent delivery - Abnormal glucose measurement 03/18/2020 Overview Note: -Abnormal 1hr GCT -Normal 3hr GTT -Growth US as above - Leukocytosis 03/18/2020 Overview Note: -WBC 26 on admission -No maternal/ tachycardia, fundal tenderness, malodorous discharge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 Lacie Bhakta MD documented as of this encounter (statuses as of 12/14/2021) [facility] [place] History of Past illness Narrative* Problem Noted Date Diagnosed Date Resolved Date Routine physical examination 07/12/2018 10/28/2019 Anemia 07/12/2018 10/28/2019 Positive GBS test 01/23/2018 02/27/2018 Overview: 01/22/18 GBS positive. Needs antibiotic in labor. Etelvina Black, WINDOW GLASS CUTTER OFF.PROJECT ARCHITECT Less than 8 weeks gestation of 07/13/2017 07/30/2017 History of delivery, currently 07/05/2017 02/27/2018 Overview: 07/05/2017 Pt has a history of labor and precipitous delivery at [address] Smart with her first child. Her second child was born at 36w2d. She states she went to the Hospital 'because I was feeling weird. I didn't have pain, I just knew something was wrong. She states she delivered her first child after arriving at the hospital within 42 minutes, the last one within 13 minutes. Signs and symptoms of PTL discussed and the importance of going to the hospital at onset of PTL should it occur. TKRN October 11, 2017 Declined progesterone, will follow cervical length and would reconsider if shortening on US. Lacie Bhakta MD October 28, 2017 Cervical length normal, repeat in 3 weeks. Lacie Bhakta MD History of depression 07/05/2017 02/27/2018 Overview: 07/05/2017Pt has a history of depression that was treated for 5 [address] [place] [address] Smart and then agian treated after her last child . Pt denies ever having any suicidal thoughts or tendencies or thoughts of hurting others..Most recently depression has been treated by Dr Mendoas. She has been off medication for 1 year. She denies depression now. Discussed increased risks of depression during and and importance of reporting the development or worsening of symptoms should they occur. Pt denies ever having any suicidal thoughts or tendencies or thoughts of hurting others.TKRN Family history of congenital heart defect 07/05/2017 02/27/2018 Overview: 07/05/2017Pt has a first cousin born with a hole in heart. Corrective surgery was done.TKRN Patient requested diagnostic testing 07/05/2017 10/17/2017 Overview: 07/05/2017Patient desires nuchal ultrasound and CF carrier screening testing.TKRN Chronic midline low back pain with sciatica 01/08/2017 10/28/2019 Routine physical examination 01/08/2017 07/30/2017 Nail biting 09/06/2016 10/28/2019 Hair pulling 09/06/2016 10/28/2019 Chronic right-sided low back pain with right-sided sciatica 08/01/2016 10/28/2019 Warts 10/13/2013 09/20/2017 Congenital pes planus 05/19/20092017 Congenital anomalies of foot , not elsewhere classified 11/06/2008 10/28/2019 Exostosis of unspecified site 10/30/2008 10/28/2019 Routine gynecological examination 07/28/2008 07/30/2017 Overview: [facility] [place] Tobacco use disorder 04/30/2008 020 Overview: Started age 17 Quit Oct 31 2016!!! Lacie Bhakta MD documented as of this encounter (statuses as of 06/21/2023) [facility] [place] History of Past illness Narrative* Problem Noted Date Diagnosed Date Resolved Date Routine physical examination 07/12/2018 10/28/2019 Anemia 07/12/2018 10/28/2019 Positive GBS test 01/23/2018 02/27/2018 Overview: 01/22/18 GBS positive. Needs antibiotic in labor. Etelvina Black, WINDOW GLASS CUTTER OFF.PROJECT ARCHITECT Less than 8 weeks gestation of 07/13/2017 07/30/2017 History of delivery, currently 07/05/2017 02/27/2018 Overview: 07/05/2017 Pt has a history of labor and precipitous delivery at [address] Smart with her first child. Her second child was born at 36w2d. She states she went to the Hospital 'because I was feeling weird. I didn't have pain, I just knew something was wrong. She states she delivered her first child after arriving at the hospital within 42 minutes, the last one within 13 minutes. Signs and symptoms of PTL discussed and the importance of going to the hospital at onset of PTL should it occur. TKRN October 11, 2017 Declined progesterone, will follow cervical length and would reconsider if shortening on US. Lacie Bhakta MD October 28, 2017 Cervical length normal, repeat in 3 weeks. Lacie Bhakta MD History of depression 07/05/2017 02/27/2018 Overview: 07/05/2017Pt has a history of depression that was treated for 5 [address] [place] [address] Smart and then agian treated after her last child . Pt denies ever having any suicidal thoughts or tendencies or thoughts of hurting others..Most recently depression has been treated by Dr Mendosa. She has been off medication for 1 year. She denies depression now. Discussed increased risks of depression during and and importance of reporting the development or worsening of symptoms should they occur. Pt denies ever having any suicidal thoughts or tendencies or thoughts of hurting others.TKRN Family history of congenital heart defect 07/05/2017 02/27/2018 Overview: 07/05/2017Pt has a first cousin born with a hole in heart. Corrective surgery was done.TKRN Patient requested diagnostic testing 07/05/2017 10/17/2017 Overview: 07/05/2017Patient desires nuchal ultrasound and CF carrier screening testing.TKRN Chronic midline low back pain with sciatica 01/08/2017 10/28/2019 Routine physical examination 01/08/2017 07/30/2017 Nail biting 09/06/2016 10/28/2019 Hair pulling 09/06/2016 10/28/2019 Chronic right-sided low back pain with right-sided sciatica 08/01/2016 10/28/2019 Warts 10/13/2013 09/20/2017 Congenital pes planus 05/19/20092017 Congenital anomalies of foot , not elsewhere classified 11/06/2008 10/28/2019 Exostosis of unspecified site 10/30/2008 10/28/2019 Routine gynecological examination 07/28/2008 07/30/2017 Overview: [facility] [place] Tobacco use disorder 04/30/2008 020 Overview: Started age 17 Quit Oct 31 2016!!! Lacie Bhakta MD documented as of this encounter (statuses as of 08/23/2023) [facility] note* Diagnosis Influenza-like illness- Primary Influenza with other respiratory manifestations Costochondritis Tietze's disease Cough COPD with exacerbation (HCC) Obstructive chronic bronchitis with exacerbation [facility] [facility] Diagnosis Hypokalemia- Primary Hypopotassemia Vitamin D deficiency Unspecified vitamin D deficiency documented in [facility] encounter [facility] Diagnosis Cough documented in this encounter [facility]* Diagnosis Influenza-like illness Influenza with other respiratory manifestations Costochondritis Tietze's disease [facility] Diagnosis Well adult exam- Primary Routine general medical examination at a health care facility Sweating increase Generalized hyperhidrosis Fatigue, unspecified type Bipolar disorder, mixed (HCC) Bipolar I disorder, most recent episode (or current) mixed, unspecified documented in this encounter [facility]* Diagnosis Encounter for gynecological examination (general) (routine) without abnormal findings- Primary Screening for cervical cancer Screening for malignant neoplasm of the cervix Encounter for screening for human papillomavirus (HPV) Special screening examination for human papillomavirus (HPV) documented in this encounter [facility] [place] Summary Purpose Family History No Family History Records FoundNo Family History Records FoundNo Family History Records Found Advance Directives No Advanced Directives Records FoundDocuments on File Type Date Recorded Patient Technical Account Executive Expl anation Advance Directive(s) 03/18/2020 7:16 AM Documents on File Type Date Recorded Patient Technical Account Executive Expl anation Advance Directive(s) 03/18/2020 7:16 AM Hospital Course Note HNO ID: [id number] Author: Pascual Moreno Service: Obstetrics Author Type: Physician Type: Discharge Summary Filed: 03/22/2020 8:00 AM Note Text: DISCHARGE SUMMARY OBSTETRICS PATIENT NAME: Martine Licea ADMISSION DATE: 03/17/2020 DISCHARGE DATE: 03/19/2020 Attending Physician: Victoria Macdonald Code Status: Not on file Treatment Team: Attending Provider: Victoria Macdonald Maternal Obstetric Provider: Lacie Bhakta Reason for Hospitalization: Intrauterine . Principal Problem: Prematurity Active Problems: labor Rh negative state in antepartum period History of back surgery History of delivery History of precipitous delivery Abnormal glucose measurement Leukocytosis Epilepsy (HCC) Anemia in Contraceptive management Resolved Problems: * No resolved hospital problems. * PROCEDURES/SURGERY DURING HOSPITALIZATION (if applicable) Hospital Course: Ms. Licea is a 34 yo at 29w1d who was a transfer from [place] for labor. She was found to make (more content not included)... Reason for Referral Specialty Diagnoses / Procedures Referred By Pau t Referred To Contact Diagnoses COPD with exacerbation (HCC) Bro Felton MD [address] [place] [address] Referral ID Status Reason Start Date Expiration Date Visits Re quested Visits Authorized [id number] Closed 1 1 Health Concerns Infection Onset Date Last Indicated Resolved Time COVID-19 Rule-Out 12/08/2021 12/08/2021 Infection Onset Date Last Indicated Resolved Time COVID-19 Rule-Out 12/08/2021 12/08/2021 12/09/2021 2:01 AM EDT Additional Source Comments INFORMATION SOURCE (unrecogn ized section and content) DATE CREATED AUTHOR 03/22/2020 [facility] DATE CREATED AUTHOR AUTHOR'S ORGANIZ ATION 03/23/2020 [facility] DATE CREATED AUTHOR AUTHOR'S ORGANIZ ATION 07/12/2024 [facility] Source Comments (unrecognize d section and content) In the event this informatio n is protected by the Federal Confidentiality of Alcohol and Drug Abuse Patient Records regulations: The Federal rules restrict any use of the information to criminally investigate or prosecute any alcohol or drug abuse patient.[facility] the event this information is protected by the Federal Confidentiality of Alcohol and Drug Abuse Patient Records regulations: The Federal rules restrict any use of the information to criminally investigate or prosecute any alcohol or drug abuse patient.[facility] the event this information is protected by the Federal Confidentiality of Alcohol and Drug Abuse Patient Records regulations: The Federal rules restrict any use of the information to criminally investigate or prosecute any alcohol or drug abuse patient.[facility] the event this information is protected by the Federal Confidentiality of Alcohol and Drug Abuse Patient Records regulations: The Federal rules restrict any use of the information to criminally investigate or prosecute any alcohol or drug abuse patient.[facility] [place] the event this information is protected by the Federal Confidentiality of Alcohol and Drug Abuse Patient Records regulations: The Federal rules restrict any use of the information to criminally investigate or prosecute any alcohol or drug abuse patient.[facility] [place] the event this information is protected by the Federal Confidentiality of Alcohol and Drug Abuse Patient Records regulations: The Federal rules restrict any use of the information to criminally investigate or prosecute any alcohol or drug abuse patient.[facility] [place] the event this information is protected by the Federal Confidentiality of Alcohol and Drug Abuse Patient Records regulations: The Federal rules restrict any use of the information to criminally investigate or prosecute any alcohol or drug abuse patient.[facility] the event this information is protected by the Federal Confidentiality of Alcohol and Drug Abuse Patient Records regulations: The Federal rules restrict any use of the information to criminally investigate or prosecute any alcohol or drug abuse patient.[facility] [place] the event this information is protected by the Federal Confidentiality of Alcohol and Drug Abuse Patient Records regulations: The Federal rules restrict any use of the information to criminally investigate or prosecute any alcohol or drug abuse patient.[facility] [place] the event this information is protected by the Federal Confidentiality of Alcohol and Drug Abuse Patient Records regulations: The Federal rules restrict any use of the information to criminally investigate or prosecute any alcohol or drug abuse patient.[facility] [place] the event this information is protected by the Federal Confidentiality of Alcohol and Drug Abuse Patient Records regulations: The Federal rules restrict any use of the information to criminally investigate or prosecute any alcohol or drug abuse patient.[facility] [place] Reason for Visit (unrecogniz ed section and content) Reason Comments Results Reason Comments Dizziness seizure 2 days ago Reason Comments Cough cough, fever, ST and chest congestion x 6 days Reason Comments Yearly Exam Care Teams (unrecognized sec tion and content) Adviser Sales Relationship Specialty Start Date End Date Chris Mendosa, DO [address] [place] [address] PCP - General Family Practice 09/24/15 Adviser Sales Relationship Specialty Start Date End Date Chris Mendosa DO [address] [place] [address] PCP - General Family Practice 09/24/15 Adviser Sales Relationship Specialty Start Date End Date Chris Mendosa, DO [address] [place] [address] PCP - General Family Practice 09/24/15 Adviser Sales Relationship Specialty Start Date End Date Chris Mendosa DO [address] [place] [address] PCP - General Family Medicine 09/24/15 Adviser Sales Relationship Specialty Start Date End Date Chris Mendosa DO [address] [facility] [place] [address] PCP - General Family Medicine 09/24/15 Adviser Sales Relationship Specialty Start Date End Date Chris Mendosa DO [address] [facility] [place] [address] PCP - General Family Medicine 09/24/15 Adviser Sales Relationship Specialty Start Date End Date Chris Mendosa DO [address] [place] [address] PCP - General Family Medicine 09/24/15 Adviser Sales Relationship Specialty Start Date End Date Chris Mendosa DO [address] [place] [address] PCP - General Family Medicine 09/24/15 Adviser Sales Relationship Specialty Start Date End Date Chris Mendosa DO [address] [place] [address] PCP - General Family Medicine 09/24/15 Phoebe Faria, WINDOW GLASS CUTTER OFF.PROJECT ARCHITECT [address] [place] [address] Golf Superintendent Family Medicine 06/08/24 Alesha Lopes, WINDOW GLASS CUTTER OFF.PROJECT ARCHITECT [address] [place] [address] Golf Superintendent Family Medicine 06/08/24 Adviser Sales Relationship Specialty Start Date End Date Chris Mendosa DO [address] [place], [place] [address] PCP - General Family Medicine 09/24/15 Phoebe Faria, JUSTUS.PROJECT ARCHITECT [address] [place], [place] [id number] [facility] 06/[facility]/24 Alesha Lopes, WINDOW GLASS CUTTER OFF.PROJECT ARCHITECT [address] [place], [place] [id number] [facility] 06/08/24 FOR RECORDS PERTAINING TO PATIENTS WHO ARE OR HAVE BEEN ENROLLED IN A CHEMICAL DEPENDENCY/SUBSTANCEABUSE PROGRAM, SOME INFORMATION MAY BE OMITTED. This clinical summary was aggregated from multiple sources. Caution should be exercised in using it in the provision of clinical care. This summary normalizes information from multiple sources, and as a consequence, information in this document may materially change the coding, format and clinical context of patient data. In addition, data may be omitted in some cases. CLINICAL DECISIONS SHOULD BE BASED ON THE PRIMARY CLINICAL RECORDS. [employer] provides no warranty or guarantee of the accuracy or completeness of information in this document.
== END 2025-02-20 20:21 | disposition left against medical advice (07) ==
LOC: ED 20:39
PROVIDERS: PCP Student in an Organized Health Care Education/Training Program
DX: Z53.21 Procedure and treatment not carried out due to patient leaving prior to being seen by health care provider (principal)